=== PATIENT | male | born 1960 | race Caucasian/White ===

== ENCOUNTER 2019-07-21 07:35 | Emergency (ER) | payer MEDICARE, MEDICAID, SELFPAY ==
[2019-07-21 07:41] VITALS: BP 123/72; PULSE 83; RESP 17; TEMP 36.4; O2SAT 98; BMI 21.4
--- NOTE | 2019-07-21 07:44 | ED_ITS ---
Documented by User: [email or web address] Cortés 07/21/19 09:35 HPI - General Adult General: Chief complaint: General Medical Stated complaint: congested/cough Time Seen by Provider: 07/21/19 07:41 History of Present Illness: HPI narrative: Patient is a 58-year-old male comes into the ED with cough and nasal congestion. He states he's had these symptoms for around 2 weeks. He reports subjective fevers, chills, fatigue and body aches. He describes cough as productive with clear and sometimes yellow sputum. Denies any nausea or vomiting, chest pain, abdominal pain, dysuria, hematuria, bowel symptoms, numbness/tingling or weakness to extremities. Review of Systems General: Reports: 10 or more systems reviewed and unremarkable except in HPI and below PFSH ED PFSH: Statuses (acute, chronic, etc) shown below reflect problem list status as previously entered and may not be historically accurate Social History Smoking and tobacco status: current every day smoker Physical Exam Narrative: EXAM NARRATIVE: Patient is a 58-year-old male peers in no acute distress pain on physical examination. He is also showing no signs of respiratory distress Const: COMMON NORMALS: oriented x3 HENMT: COMMON NORMALS: normocephalic HEAD & SCALP: normocephalic NOSE: nasal discharge (clear and some yellow drainage) clear MOUTH: oral and palatal mucosa normal THROAT: posterior oropharynx normal and uvula midline Neck/C-Spine: COMMON NORMALS: supple GENERAL: Yes normal visual inspection Resp: COMMON NORMALS: normal respiratory effort, no retractions, no use of accessory muscles and clear to auscultation bilaterally AUSCULTATION: clear to auscultation bilaterally and diminished lung sounds (bases (Mild)) bilateral Cardio: COMMON NORMALS: regular rate, regular rhythm, S1 normal heart sound, S2 normal heart sound, no gallops, no clicks, no murmurs and peripheral pulses 2+ throughout RATE: regular rate RHYTHM: regular rhythm HEART SOUNDS: S1 normal and S2 normal PERIPHERAL PULSES: pulses 2+ throughout GI: COMMON NORMALS: normal to inspection, nondistended, normoactive bowel sounds, soft to palpation, non-tender and no masses PALPATION: Yes soft : COMMON NORMALS: Yes no CVA tenderness BLADDER/KIDNEY EXAM: Yes no CVA tenderness Back/Pelvis: COMMON NORMALS: no CVA tenderness Neuro: COMMON NORMALS: oriented x3 and moves all extremities Skin: COMMON NORMALS: no rashes or lesions noted GENERAL SKIN EXAM: no rashes or lesions noted Course Vital Signs: Vital signs: Vital Signs Temperature 97.5 F L 07/21/19 07:41 Pulse Rate 73 07/21/19 08:56 Respiratory Rate 14 07/21/19 08:56 Blood Pressure 113/73 07/21/19 08:56 Pulse Oximetry 98 07/21/19 08:56 MDM - General Adult MDM Narrative: Medical decision making narrative: Patient is a 58-year-old ma le comes in with cough and nasal drainage/congestion. Symptoms started about 2 weeks ago. Labs were remarkable for positive influenza A result. Chest x-ray showed no acute findings and CBC showed a white blood cell count of 6.3. Advised patient that since his symptoms have been going on for 2 weeks now it is recommended that he is prescribed Tamiflu. I educated patient on symptom management and the importance of staying hydrated by drinking plenty of fluids. Take Tylenol for fevers.I also told patient that if his symptoms continue to worsen or he has increased shortness of breath and wheezing to come back in for reevaluation. Patient understood And agreed with plan. Lab Data: Attestation: I reviewed the patient's lab results. Labs: Lab Results 07/21/19 07/21/19 07/21/19 Range/Units 07:47 07:56 07:56 WBC 6.3 (4.0-10.0) 10^3/ uL RBC 4.78 (4.1-5.3) 10^6/u L Hgb 14.3 (11.7-16.6) g/dL Hct 43.8 (42.0-52.0) % MCV 91.6 (80-94) fL MCH 29.9 (28.0-34.0) pg MCHC 32.6 (30.0-36.0) g/dL RDW 12.1 (12.1-15.1) % Plt Count 226 (130-400) 10^3/c mm MPV 9.3 (7.4-10.4) fL Neut % (Auto) 67.4 % Lymph % (Auto) 21.6 % [place] % (Auto) 6.6 % Eos % (Auto) 3.2 % Baso % (Auto) 0.6 % Neut # (Auto) 4.2 (1.8-7.7) 10^3/u L Lymph # (Auto) 1.4 (0.8-4.8) 10^3/u L [place] # (Auto) 0.4 (0.2-0.9) 10^3/u L Eos # (Auto) 0.2 (0.0-0.8) 10^3/u L Baso # (Auto) 0.0 (0.0-0.1) 10^3/u L Nucleated RBC % (a uto) 0 % Nucleated RBCs # 0.0 /100WBC Sodium 137 (136-145) mmol/L Potassium 4.1 (3.5-5.1) mmol/L Chloride 100 (98-107) mmol/L Carbon Dioxide 28 (22-29) mmol/L Anion Gap 13.1 (5-19) BUN 7 L (8-23) mg/dL Creatinine 0.7 (0.7-1.2) mg/dL GFR Calculation 115.0 (90-130) mL/min Glucose 148 H (74-106) mg/dL Calcium 9.4 (8.8-10.2) mg/Dl Total Bilirubin 0.3 (0.15-1.2) mg/dL AST 11 (0-40) U/L ALT 6 (0-41) U/L Alkaline Phosphata se 68 (40-130) IU/L Total Protein 7.0 (6.6-8.7) g/dL Albumin 4.0 (3.5-5.2) g/dL Globulin 3.0 (1.3-4.6) g/dL Influenza Type A A g Positive H (Negative) POC Influenza B Ag Negative (Negative) Imaging Data^: CXR: Attestation: I personally reviewed and interpreted this imaging study as follows: Radiologist's impression: [address] [address] XRay Report Signed Patient: Robert Calle Unit #: [id number] : 1960 Age/Sex: 58 / M ADM Date: 07/21/19 Loc: ER Room/Bed: Attending Dr: Ordering Provider/Ordering MD: Dwayne Santos Date of Service: 07/21/19 Procedure(s): XR chest 2V* 27022 Accession Number(s): [id number] Report Number: [id number] PROCEDURE INFORMATION: Exam: XR Chest, 2 Views Exam date and time: 07/21/2019 8:21 AM Age: 58 years old Clinical indication: Patient HX: Cough runny nose 2 weeks TECHNIQUE: Imaging protocol: XR of the chest Views: 2 views. COMPARISON: CR Chest 1 [place] [id number] 10/04/2018 10:47 PM FINDINGS: Cardiomediastinal silhouette contour is within normal limits. Lungs clear bilaterally. No visible pneumothorax or pleural effusion. Pulmonary vasculature within normal limits. XR/XR chest 2V* [id number] IMPRESSION: 1. No radiographic findings of acute cardiopulmonary disease. Dictated By: Zhao Garcia MD Signed By: Zhao Garcia MD Signed Date/Time: 07/21/19828 DD/ 7 Discharge Plan Discharge Patient Disposition: Home, Self-Care Clinical Impression: Influenza A Condition: Stable Discharge Orders: Discharge Order (Routine); Ordered 07/21/19 Ordered By: Dwayne Santos Referrals: Gil Graham Jr, MD [Primary Care Provider] - Discharge Diet: Regular Discharge Activity: Resume usual activity Patient Instructions: Flu - Adult Activity Restrictions/Additional Instructions: Call your primary care provider tomorrow to set up an appointment for reevaluation in about 7 days. Use previously prescribed albuterol inhaler as needed for shortness of breath or wheezing. Take Tylenol or ibuprofen for fever control. Drink plenty of fluids. 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 [employer] Documented by User: Kishan Wu DO 07/23/19 06:43 HPI - General Adult General: Chief complaint: General Medical Stated complaint: congested/cough Time Seen by Provider: 07/21/19 07:41 PFSH ED PFSH: Statuses (acute, chronic, etc) shown below reflect problem list status as previously entered and may not be historically accurate Social History Smoking and tobacco status: current every day smoker Course Vital Signs: Vital signs: Vital Signs Temperature 97.5 F L 07/21/19 07:41 Pulse Rate 73 07/21/19 08:56 Respiratory Rate 14 07/21/19 08:56 Blood Pressure 113/73 07/21/19 08:56 Pulse Oximetry 98 07/21/19 08:56 MDM - General Adult Lab Data: Labs: Lab Results 07/21/19 07/21/19 07/21/19 Range/Units 07:47 07:56 07:56 WBC 6.3 (4.0-10.0) 10^3/ uL RBC 4.78 (4.1-5.3) 10^6/u L Hgb 14.3 (11.7-16.6) g/dL Hct 43.8 (42.0-52.0) % MCV 91.6 (80-94) fL MCH 29.9 (28.0-34.0) pg MCHC 32.6 (30.0-36.0) g/dL RDW 12.1 (12.1-15.1) % Plt Count 226 (130-400) 10^3/c mm MPV 9.3 (7.4-10.4) fL Neut % (Auto) 67.4 % Lymph % (Auto) 21.6 % [place] % (Auto) 6.6 % Eos % (Auto) 3.2 % Baso % (Auto) 0.6 % Neut # (Auto) 4.2 (1.8-7.7) 10^3/u L Lymph # (Auto) 1.4 (0.8-4.8) 10^3/u L [place] # (Auto) 0.4 (0.2-0.9) 10^3/u L Eos # (Auto) 0.2 (0.0-0.8) 10^3/u L Baso # (Auto) 0.0 (0.0-0.1) 10^3/u L Nucleated RBC % (a uto) 0 % Nucleated RBCs # 0.0 /100WBC Sodium 137 (136-145) mmol/L Potassium 4.1 (3.5-5.1) mmol/L Chloride 100 (98-107) mmol/L Carbon Dioxide 28 (22-29) mmol/L Anion Gap 13.1 (5-19) BUN 7 L (8-23) mg/dL Creatinine 0.7 (0.7-1.2) mg/dL GFR Calculation 115.0 (90-130) mL/min Glucose 148 H (74-106) mg/dL Calcium 9.4 (8.8-10.2) mg/Dl Total Bilirubin 0.3 (0.15-1.2) mg/dL AST 11 (0-40) U/L ALT 6 (0-41) U/L Alkaline Phosphata se 68 (40-130) IU/L Total Protein 7.0 (6.6-8.7) g/dL Albumin 4.0 (3.5-5.2) g/dL Globulin 3.0 (1.3-4.6) g/dL Influenza Type A A g Positive H (Negative) POC Influenza B Ag Negative (Negative) Discharge Plan Discharge Patient Disposition: Home, Self-Care Clinical Impression: Influenza A Condition: Stable Discharge Orders: Discharge Order (Routine); Ordered 07/21/19 Ordered By: Dwayne Santos Referrals: Gil Graham Jr, MD [Primary Care Provider] - Discharge Diet: Regular Discharge Activity: Resume usual activity Patient Instructions: Flu - Adult Activity Restrictions/Additional Instructions: Call your primary care provider tomorrow to set up an appointment for reevaluation in about 7 days. Use previously prescribed albuterol inhaler as needed for shortness of breath or wheezing. Take Tylenol or ibuprofen for fever control. Drink plenty of fluids. 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
--- NOTE | 2019-07-21 07:44 | XRR_ITS ---
PROCEDURE INFORMATION: Exam: XR Chest, 2 Views Exam date and time: 07/21/2019 8:21 AM Age: 58 years old Clinical indication: Patient HX: Cough runny nose 2 weeks TECHNIQUE: Imaging protocol: XR of the chest Views: 2 views. COMPARISON: CR Chest 1 [place] [id number] 10/04/2018 10:47 PM FINDINGS: Cardiomediastinal silhouette contour is within normal limits. Lungs clear bilaterally. No visible pneumothorax or pleural effusion. Pulmonary vasculature within normal limits. XR/XR chest 2V* [id number] IMPRESSION: 1. No radiographic findings of acute cardiopulmonary disease.
--- NOTE | 2019-07-21 07:52 | PC.NURSE ---
Lab at bedside to draw blood
[2019-07-21 08:00] LABS: Basophils % 0.6 %; Eosinophils # 0.2 10^3/uL (0.0-0.8); Eosinophils % 3.2 %; Hematocrit 43.8 % (42.0-52.0); Hemoglobin 14.3 g/dL (11.7-16.6); Lymphocytes # 1.4 10^3/uL (0.8-4.8); Lymphocytes % 21.6 %; Mean Corpuscular HGB Conc 32.6 g/dL (30.0-36.0); Mean Corpuscular Hemoglobin 29.9 pg (28.0-34.0); Mean Corpuscular Volume 91.6 fL (80-94); Mean Platelet Volume 9.3 fL (7.4-10.4); Monocytes # 0.4 10^3/uL (0.2-0.9); Monocytes % 6.6 %; Neutrophils # 4.2 10^3/uL (1.8-7.7); Neutrophils % 67.4 %; Nucleated Red Blood Cells % 0 %; Platelet Count 226 10^3/cmm (130-400); Red Blood Count 4.78 10^6/uL (4.1-5.3); Red Cell Distribution Width 12.1 % (12.1-15.1); White Blood Count 6.3 10^3/uL (4.0-10.0)
[2019-07-21 08:14] LABS: Alanine Aminotransferase 6 U/L (0-41); Alkaline Phosphatase 68 IU/L (40-130); Anion Gap 13.1 (5-19); Aspartate Amino Transferase 11 U/L (0-40); Blood Urea Nitrogen 7 mg/dL (8-23); Calcium 9.4 mg/Dl (8.8-10.2); Carbon Dioxide 28 mmol/L (22-29); Chloride 100 mmol/L (98-107); Glucose 148 mg/dL (74-106); Potassium 4.1 mmol/L (3.5-5.1); Sodium 137 mmol/L (136-145); Total Bilirubin 0.3 mg/dL (0.15-1.2)
[2019-07-21 08:26] LABS: Influenza A by IFA Positive (Negative); Influenza B by IFA Negative (Negative)
[2019-07-21 08:27] VITALS: BP 111/74; PULSE 77; RESP 16; O2SAT 96
[2019-07-21 08:53] VITALS: BP 113/73; PULSE 77; RESP 14; O2SAT 97
[2019-07-21 08:56] VITALS: BP 113/73; PULSE 73; RESP 14; O2SAT 98
== END 2019-07-21 09:03 | disposition home or self-care (01) ==
PROVIDERS: Emergency Provider Physician Assistant; Family Provider Family Medicine; PCP Family Medicine
DX: J10.1 Influenza due to other identified influenza virus with other respiratory manifestations (principal); F17.210 Nicotine dependence, cigarettes, uncomplicated
CPT/HCPCS: 36415; 71046; 80053; 85025; 87804; 99282

== ENCOUNTER 2020-11-25 15:51 | Outpatient (CLI) | payer MEDICARE, MEDICAID, SELFPAY ==
--- NOTE | 2020-11-25 16:05 | XR_ITS ---
WS: [id number] Exam: XR chest 2V* [id number] Date/Time of Exam: 11/25/2020 4:08 PM Reason For Exam: WEIGHT LOSS Comparison 07/21/2019. The lungs are hyperinflated and clear. Fibrous scarring in the bilateral upper lobes. Normal cardiome diastinal structures and bony elements. No pleural effusion. XR/XR chest 2V* [id number] IMPRESSION: 1. Pulmonary hyperinflation which may indicate COPD. 2. Fibrous scarring in the upper lobes
== END 2020-11-25 15:52 | disposition home or self-care (01) ==
LOC: RAD 16:00
PROVIDERS: PCP Family Medicine; Visit Provider Internal Medicine
DX: R63.4 Abnormal weight loss (principal)
CPT/HCPCS: 71046

== ENCOUNTER → 2021-01-13 09:15 | Outpatient (BNVA) | payer MEDICARE, MEDICAID, SELFPAY | PROVIDERS: PCP Family Medicine; Visit Provider Internal Medicine Rheumatology | DX: M05.79 Rheumatoid arthritis with rheumatoid factor of multiple sites without organ or systems involvement (principal); Z79.899 Other long term (current) drug therapy; M19.90 Unspecified osteoarthritis, unspecified site; Z11.59 Encounter for screening for other viral diseases; Z79.52 Long term (current) use of systemic steroids; Z86.19 Personal history of other infectious and parasitic diseases; R64 Cachexia; Z68.1 Body mass index [BMI] 19.9 or less, adult; Z71.89 Other specified counseling; F17.210 Nicotine dependence, cigarettes, uncomplicated; Z11.1 Encounter for screening for respiratory tuberculosis | CPT/HCPCS: 36415; 71046; 73130; 73630; 82306; 86431; 86480; 86704; 87340; 87806; 99204 ==

== ENCOUNTER 2021-01-13 11:24 | Outpatient (CLI) | payer MEDICARE, MEDICAID, SELFPAY ==
--- NOTE | 2021-01-13 11:39 | XR_ITS ---
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 Findings: No nodules, masses or effusions are seen. There are chronic interstitial changes throughout the lungs. The heart is normal. The pulmonary vascularity is not increased. No pneumonia or pneumoth orax is seen. The diaphragms are flattened. XR/XR chest 2V* [id number] Impression: Hyperinflation and chronic interstitial fibrotic change of the lungs.
--- NOTE | 2021-01-13 11:39 | XR_ITS ---
WS: [id number] Left foot, 3 views, 01/13/2021 Clinical Data: Z79.899 - Other [facility] (current) drug therapy Comparison: None. Findings: No fractures or dislocations are seen. No bone destruction or erosion is noted. The joint spaces and soft tissues are normal. No periarticular demineralization or calcifications are seen. There is diffuse demineralization of th e left foot. XR/XR foot LT min 3V* [id number] Impression: Diffuse demineralization of the left foot.
--- NOTE | 2021-01-13 11:39 | XR_ITS ---
WS: [id number] Left hand, 3 views, 01/13/2021 Clinical Data: Z79.899 - [facility] (current[facility] drug therapy Comparison: None. Findings: No fractures or dislocations are seen. The soft tissues are unremarkable. The joint spaces are normal No periarticular demineralization or calcifications are seen. There is an old fracture of the left sc aphoid XR/XR hand LT min 3V* 13640 Impression: 1. Negative left hand. 2. Old unhealed fracture of the left scaphoid.
--- NOTE | 2021-01-13 11:39 | XR_ITS ---
WS: [id number] Right hand, 3 views, 01/13/2021 Clinical Data: Z79.899 - Other care home (current) drug therapy Comparison: None. Findings: No fractures or dislocations are seen. The soft tissues are unremarkable. The joint space s are normal No periarticular demineralization or calcifications are seen. XR/XR hand RT min 3V* [id number] Impression: Negative right hand.
--- NOTE | 2021-01-13 11:39 | XR_ITS ---
WS: [id number] Right foot, 3 views, 01/13/2021 Clinical Data: Z79.899 - Other [facility] (current) drug therapy Comparison: None. Findings: No fractures or dislocations are seen. No bone destruction or erosion is noted. The joint spaces and soft tissues are normal. No periarticular demineralization or calcifications are seen. There is diffuse demineralization of th e right foot. XR/XR foot RT min 3V* 46651 Impression: Diffuse demineralization of the right foot.
[2021-01-13 13:08] LABS: HIV 1 & 2 Antibody Non-Reactive (Non-Reactiv); HIV 1 & 2 Antigen Non-Reactive (Non-Reactiv)
[2021-01-13 13:11] LABS: 25 Hydroxy Vitamin D 22 ng/mL (30-100)
[2021-01-13 19:08] LABS: Hepatitis B Core AB, Total Non-Reactive (Nonreactive); Hepatitis B Surface Antigen Non-Reactive (Nonreactive)
[2021-01-15 14:58] LABS: Quantiferon Mitogen 8.94 IU/mL; Quantiferon Nil 0.02 IU/mL; Quantiferon TB Gold NEGATIVE (NEGATIVE)
== END 2021-01-13 11:25 | disposition home or self-care (01) ==
LOC: LAB 11:33 → RAD 11:35
PROVIDERS: PCP Family Medicine; Visit Provider Internal Medicine Rheumatology
DX: M19.90 Unspecified osteoarthritis, unspecified site (principal); Z79.899 Other long term (current) drug therapy; Z11.59 Encounter for screening for other viral diseases; Z11.1 Encounter for screening for respiratory tuberculosis
CPT/HCPCS: 36415; 71046; 73130; 73630; 82306; 86431; 86480; 86704; 87340; 87806

== ENCOUNTER 2021-05-24 07:26 | Outpatient (CLI) | payer MEDICARE, MEDICAID, SELFPAY ==
[2021-05-24 07:40] VITALS: BP 108/65; PULSE 97; RESP 18; TEMP 36.7; O2SAT 97; BMI 19.9
[2021-05-24 08:07] VITALS: BP 91/54; PULSE 84; RESP 16; TEMP 35.8; O2SAT 98
[2021-05-24 09:07] VITALS: BP 96/62; PULSE 81; RESP 16; TEMP 36.7; O2SAT 98
== END 2021-05-24 07:27 | disposition home or self-care (01) ==
PROVIDERS: PCP Family Medicine; Visit Provider Family Medicine
DX: U07.1 COVID-19 (principal)
CPT/HCPCS: 96365

== ENCOUNTER 2021-12-23 08:09 | Outpatient (CLI) | payer MEDICARE, MEDICAID, SELFPAY ==
--- NOTE | 2021-12-23 08:22 | XR_ITS ---
WS: [id number] Exam: XR thoracic spine 2V [id number] Date/Time of Exam: 12/23/2021 8:24 AM Reason For Exam: H/O FALL, PAIN There is a compression fracture of the upper plate of T11 with about 30% loss of vertebral height ant eriorly. Fracture age is indeterminate but this could be a recent fracture. No obvious posterior disp lacement noted. There is also a mild biconcave insufficiency compression of T6 without significant lo ss of vertebral height and no displacement. The T-spine is osteopenic. Mild spondylosis. Normal shola flash soft tissues. No scoliosis. XR/XR thoracic spine 2V 12695 IMPRESSION: 1. Compression fracture of the upper plate of T11 with about 30% loss of verteb ral height and no posterior displacement. Fracture age is difficult to determin e but this may be recent. 2. Mild biconcave insufficiency compression of T6 without significant displacem ent or loss in vertebral height. 3. Mild degenerative change and osteopenia.
--- NOTE | 2021-12-23 08:22 | XR_ITS ---
WS: [id number] Exam: XR chest 2V* [id number] Date/Time of Exam: 12/23/2021 8:24 AM Reason For Exam: H/O FALL PAIN Comparison 01/13/2021. The lungs are hyperinflated. Chronic fibrosis and honeycombing noted. No pleural effusions. Normal ca rdiomediastinal silhouette. Compression fracture of the upper plate of T11 noted with about 30% loss of vertebral height anteriorly. No obvious posterior displacement. This has occurred since the last e xam. The T-spine is osteopenic. XR/XR chest 2V* [id number] IMPRESSION: 1. Pulmonary hyperinflation with changes of fibrosis and honeycombing. Chronic right-sided pleural thickening. No acute cardiopulmonary process. 2. Compression fracture of the upper plate of the T11 without significant poste rior displacement. This has occurred since the last exam.
== END 2021-12-23 08:10 | disposition home or self-care (01) ==
PROVIDERS: PCP Family Medicine; Visit Provider Internal Medicine
DX: R07.89 Other chest pain (principal); S22.089A Unspecified fracture of T11-T12 vertebra, initial encounter for closed fracture; W19.XXXA Unspecified fall, initial encounter
CPT/HCPCS: 71046; 72070

== ENCOUNTER 2022-04-05 14:59 | Outpatient (CLI) | payer MEDICARE, MEDICAID, SELFPAY ==
--- NOTE | 2022-04-05 15:13 | CT_ITS ---
WS: [id number] CT CHEST TECHNIQUE: Contrast enhanced CT of the chest with coronal and sagittal reformatted images. CLINICAL INFORMATION: FIBROSIS COMPARISON: None. DLP: 533.[address] scans at [facility] use at least one of these dose optimization techniques: automated e xposure control; mA and/or kV adjustment per patient size (includes targeted exams where dose is matc hed to clinical indication); or iterative reconstruction. FINDINGS: Advanced chronic centrilobular and paraseptal emphysematous with a few small noncalcified pulmonary n odules the largest measuring 6 mm in the RIGHT upper lobe. Recommend 12 month follow-up. No acute pul monary infiltrates. No focal pneumonia pleural fluid. Suspected subpleural honeycombing more prominen t in the lung bases. This can be further evaluated with high-resolution CT. Recommend correlation wit h pulmonary function studies. Normal caliber thoracic aorta. Aortic calcification. Coronary calcification. No mediastinal or hilar lymphadenopathy. No axillary lymphadenopathy. Adrenal glands are normal. Splenic granulomas. Celiac and SMA are patent . Normal portal vein and splenic vein. Mild thoracic kyphosis. Chronic appearing compression fracture T11 vertebral body with anterior wedgi ng. CT/CT chest w con* [id number] IMPRESSION: 1. Advanced chronic paraseptal and centrilobular emphysematous changes. 2. A few scattered noncalcified pulmonary nodules largest in the RIGHT upper l obe measuring 6 mm recommend 12 month follow-up. 3. Subpleural honeycombing in the lung bases.This can be further evaluated wit h high-resolution chest CT and pulmonary consult. Recommend correlation with pu lmonary function tests. 4. No mediastinal or hilar lymphadenopathy. 5. Chronic compression of the T11 vertebral body with anterior wedging.
[2022-04-05 16:10] LABS: Blood Urea Nitrogen 7 mg/dL (8-23); Glomerular Filtration Rate 113.9 mL/min (90-130)
[2022-04-05] MEDS: iohexol 350 mg/mL 100 mL Btl IV (16:16)
== END 2022-04-05 15:00 | disposition home or self-care (01) ==
PROVIDERS: PCP Family Medicine; Visit Provider Internal Medicine
DX: J43.9 Emphysema, unspecified (principal); R91.8 Other nonspecific abnormal finding of lung field; M48.54XA Collapsed vertebra, not elsewhere classified, thoracic region, initial encounter for fracture
CPT/HCPCS: 71260; 82565; 84520

== ENCOUNTER 2022-05-17 17:15 | Inpatient (IN) | payer MEDICARE, MEDICAID, SELFPAY ==
[2022-05-17] VITALS (9 sets, daily range): BP systolic 90–111; BP diastolic 54–65; PULSE 89–121; RESP 17–24; TEMP 36.7–39.8; O2SAT 93–100; BMI 23.6; BMI 20.7
--- NOTE | 2022-05-17 17:18 | W.ED.SOB ---
HPI - SOB/Dyspnea General: Chief Complaint: COVID symptoms Stated Complaint: SOB Time Seen by Provider: 05/17/22 17:18 Limitations: altered mental status History of Present Illness: HPI Narrative: Mr. Calle is a 61-year-old gentleman with history of (per chart review) rheumatoid arthritis, hepatitis C, chronic steroid use presenting to the emergency department due to altered mental status. Patient is unable to provide reliable timeline of events. Apparently he began having fevers about 2 days ago and increased shortness of breath. EMS found the patient to be hypoxemic, tachycardic, febrile and initial blood pressure was low. History otherwise limited by patient's confusion. Review of Systems General: Reports: ROS unobtainable due to mental status PFSH ED PFSH: Medical History Chronic steroid use Encounter for smoking cessation counseling Hepatitis C Treated in 2018 High risk medication use Hyperlipidemia, unspecified Immunization counseling Paranoid schizophrenia Paranoid schizophrenia in remission Seropositive rheumatoid arthritis of multiple sites Surgical History Total knee replacement status Family History Other Unknown family medical history Social History Smoking and tobacco status: current every day smoker Alcohol intake: unknown Housing: Assisted Living Facility History of recent travel: No Physical Exam Const: COMMON NORMALS: alert GENERAL APPEARANCE: cooperative, well developed and ill appearing HENMT: COMMON NORMALS: normocephalic and atraumatic HEAD & SCALP: normocephalic and atraumatic THROAT: posterior oropharynx normal Eye: COMMON NORMALS: conjunctivae normal CONJUNCTIVA: Yes conjunctivae normal SCLERA: sclerae normal Neck/C-Spine: COMMON NORMALS: supple GENERAL: Yes trachea midline Resp: EFFORT & INSPECTION: Yes able to speak in complete sentences AUSCULTATION: rhonchi Cardio: COMMON NORMALS: regular rhythm RATE: tachycardic RHYTHM: regular rhythm GI: COMMON NORMALS: Soft to palpation PALPATION: Yes Soft to palpation and No Tenderness to palpation present (GI) Extremity: GENERAL: Yes normal exam except as noted and No edema Neuro: COMMON NORMALS: moves all extremities SENSORIUM/ORIENTATION: Yes alert and Yes Orientation impaired Psych: MEMORY/COGNITION: Yes memory grossly impaired Course Vital Signs: Vital signs: Vital Signs Temperature 98.3 F 05/21/22 07:28 Pulse Rate 88 05/21/22 11:38 Respiratory Rate 18 05/21/22 07:28 Blood Pressure 113/56 05/21/22 07:28 Pulse Oximetry 93 05/21/22 11:38 Oxygen Delivery Me thod 05/21/22 08:08 Oxygen Flow Rate 1.5 05/21/22 07:28 MDM - SOB/Dyspnea Medical Decision Making 61-year-old gentleman presenting with respiratory symptoms, patient provides limited history of no focal deficits appreciated on exam. EKG shows sinus tachycardia, nonspecific ST segment abnormalities, no STEMI. Labs with no leukocytosis, normocytic anemia. Metabolic panel with some evidence of intravascular dehydration with hyponatremia and hypochloremia, renal function is preserved. Procalcitonin elevated. Viral panel negative. CT head negative for acute intracranial pathology. Chest x-ray with left-sided pneumonia, no pneumothorax. Patient given IV fluids and antibiotics. Most likely cause of patient's symptoms of sepsis pneumonia with altered mental status and hypoxia. The results of ED evaluation were discussed with the patient including plan for admission due to requirement for level of care not available if discharged to prevent significant worsening/deterioration. Patient agreeable with plan. Discussed with hospitalist service who was agreeable to admit patient. Medical Records I reviewed the patient's medical records. Lab Data I reviewed the patient's lab results. 05/21/22 05:09 05/21/22 05:09 Labs/Radiology: Radiology Impressions Chest X-Ray 05/17/22 17:26 IMPRESSION: Left basilar pneumonia. Head CT 05/17/22 17:28 IMPRESSION: No acute intracranial abnormality. Mild sinusitis. Laboratory Results WBC 9.2 10^3/uL (4.0-10.0) 05/17/22 17:30 RBC 3.39 10^6/uL (4.1-5.3) L 05/17/22 17:30 Hgb 10.7 g/dL (11.7-16.6) L 05/17/22 17:30 Hct 31.5 % (42.0-52.0) L 05/17/22 17:30 MCV 92.9 fl (80-94) 05/17/22 17:30 MCH 31.6 pg (28.0-34.0) 05/17/22 17:30 MCHC 34.0 g/dL (30.0-36.0) 05/17/22 17:30 RDW 12.7 % (12.1-15.1) 05/17/22 17:30 Plt Count 170 10^3/cmm (130-400) 05/17/22 17:30 MPV 9.9 fL (7.4-10.4) 05/17/22 17:30 Neut % (Auto) 88.7 % 05/17/22 17:30 Lymph % (Auto) 6.8 % 05/17/22 17:30 [place] % (Auto) 3.7 % 05/17/22 17:30 Eos % (Auto) 0.0 % 05/17/22 17:30 Baso % (Auto) 0.5 % 05/17/22 17:30 Neut # (Auto) 8.14 10^3/uL (1.8-7.7) H 05/17/22 17:30 Lymph # (Auto) 0.6 10^3/uL (0.8-4.8) L 05/17/22 17:30 [place] # (Auto) 0.3 10^3/uL (0.2-0.9) 05/17/22 17:30 Eos # (Auto) 0.0 10^3/uL (0.0-0.8) 05/17/22 17:30 Baso # (Auto) 0.1 10^3/uL (0.0-0.1) 05/17/22 17:30 Nucleated RBC % (auto) 0 % 05/17/22 17:30 Nucleated RBCs # 0.0 /100WBC 05/17/22 17:30 Specimen Type Arterial 05/17/22 17:52 Sample Site Radial, left 05/17/22 17:52 ABG pH 7.47 (7.35-7.45) H 05/17/22 17:52 ABG pCO2 34.6 mmHg (35-45) L 05/17/22 17:52 ABG pO2 81.9 mmHg (80.0-100.0) 05/17/22 17:52 ABG HCO3 25.0 mmol/L (22-26) 05/17/22 17:52 ABG Base Excess 1.4 mmol/L (-2.0-2.0) 05/17/22 17:52 Stanislav Test Pos 05/17/22 17:52 Hematocrit 29.9 % (42-52) L 05/17/22 17:52 Hgb O2 Saturation 95.7 % (95-100) 05/17/22 17:52 Carboxyhemoglobin 1.5 %THgb (0.4-20.1) 05/17/22 17:52 Methemoglobin 0.6 % (0.4-1.5) 05/17/22 17:52 Total Hemoglobin 9.8 g/dL (14-18) L 05/17/22 17:52 O2 Delivery Device Nc 05/17/22 17:52 O2 Liters/Min 2.5 % 05/17/22 17:52 Poultry Breeder ID Gary 05/17/22 17:52 Sodium 127 mmol/L (136-145) L 05/17/22 17:30 Potassium 3.8 mmol/L (3.5-5.1) 05/17/22 17:30 Chloride 93 mmol/L (98-107) L 05/17/22 17:30 Carbon Dioxide 22 mmol/L (22-29) 05/17/22 17:30 Anion Gap 15.8 (5-19) 05/17/22 17:30 BUN 10 mg/dL (8-23) 05/17/22 17:30 Creatinine 0.6 mg/dL (0.7-1.2) L 05/17/22 17:30 GFR Calculation 136.1 mL/min (90-130) H 05/17/22 17:30 Glucose 110 mg/dL (65-115) 05/17/22 17:30 Calculated Osmolality 264 mOsm/kg (285-295) L 05/17/22 17:30 Lactic Acid 1.5 mmol/L (0.5-2.2) 05/17/22 17:30 Calcium 8.6 mg/dL (8.5-10.5) 05/17/22 17:30 Total Bilirubin 0.6 mg/dL (0.15-1.2) 05/17/22 17:30 AST 38 U/L (0-40) 05/17/22 17:30 ALT 14 U/L (0-41) 05/17/22 17:30 Alkaline Phosphatase 68 U/L (40-130) 05/17/22 17:30 Ammonia 36 umol/L (16-60) 05/17/22 17:49 Total Protein 6.0 g/dL (6.6-8.7) L 05/17/22 17:30 Albumin 2.9 g/dL (3.5-5.2) L 05/17/22 17:30 Globulin 3.1 g/dL (1.3-4.6) 05/17/22 17:30 Procalcitonin 1.55 ng/mL (0-0.5) H 05/17/22 17:30 TSH 1.71 uIU/mL (0.27-4.20) 05/17/22 17:47 Coronavirus 229E (PCR) Not detected (NOT DETECT) 05/17/22 17:40 SARS-CoV-2 (PCR) Not detected (NOT DETECT) 05/17/22 17:40 Critical Care Time Critical Care Time: Critical Care Time: Yes Total Critical Care Time: 35 Attestation: Due to a high probability of clinically significant, possibly life threatening deterioration, the patient required my highest level of attention and preparedness to intervene emergently and I personally spent this critical care time directly and personally managing the patient. This critical care time included obtaining a history; examining the patient; pulse oximetry; ordering and review of laboratory and imaging studies; arranging urgent treatment with development of a management plan; evaluation of patient's response to treatment; frequent reassessment; and, discussions with other providers as applicable. It was exclusive of separately billable procedures. Primary system involved is pulmonary Discharge Plan Discharge Patient Disposition: Admitted As Inpatient Admit Provider: Berkley Rao Clinical Impression: Pneumonia, Sepsis, Hypoxia Condition: Stable Discharge Diet: Regular Discharge Activity: Resume usual activity Coding Level of Care Code ED Criminal Justice Department Chair for Herog Fwd Exam Comprehensive
--- NOTE | 2022-05-17 17:26 | XRR_ITS ---
PROCEDURE INFORMATION: Exam: XR Chest Exam date and time: 05/17/2022 6:49 PM Age: 61 years old Clinical indication: Shortness of breath; Additional info: SOB, AMS TECHNIQUE: Imaging protocol: Radiologic exam of the chest. Views: 1 view. COMPARISON: CT chest w con* [id number] 04/05/2022 4:11 PM FINDINGS: Lungs: Left basilar pneumonia is noted. Pleural spaces: A small left pleural effusion is present. No pneumothorax. Heart/Mediastinum: Unremarkable. No cardiomegaly. Bones/joints: Unremarkable. XR/XR chest 1V portable [id number] IMPRESSION: Left basilar pneumonia.
--- NOTE | 2022-05-17 17:28 | CTR_ITS ---
PROCEDURE INFORMATION: Exam: CT Head Without Contrast Exam date and time: 05/17/2022 5:40 PM Age: 61 years old Clinical indication: Fever; Additional info: AMS TECHNIQUE: Imaging protocol: Computed tomography of the head without contrast. Radiation optimization: All CT scans at this facility use at least one of these dose optimization techniques: automated exposure control; mA and/or kV adjustment per patient size (includes targeted exams where dose is matched to clinical indication); or iterative reconstruction. COMPARISON: No relevant prior studies available. RADIATION DOSE METRICS: Total DLP (mGy-cm): 1100.18 FINDINGS: Brain: Mild periventricular white matter chronic microvascular changes are noted. No hemorrhage or evidence of acute infarction. Cerebral ventricles: No ventriculomegaly. Paranasal sinuses: Mild left ethmoid sinusitis is appreciated. Mastoid air cells: Visualized mastoid air cells are well aerated. Bones/joints: Unremarkable. No acute fracture. Soft tissues: Unremarkable. CT/CT head wo con* [id number] IMPRESSION: No acute intracranial abnormality. Mild sinusitis.
--- NOTE | 2022-05-17 17:35 | ECG_ITS ---
[facility] Test Date: 2022-05-17 Pat Name: Robert Calle Department: Room: Gender: Male Medicare Contact Specialist: : [id number] Requested By: Paresh Gibbs Order Number: [id number] Susan MD: Javi Cobos M.D. Measurements Intervals [place] Rate: 118 P: 75 OR: 141 QRS: 67 QRSD: 96 T: 54 QT: 300 QTc: 420 Interpretive Statements SINUS TACHYCARDIA WITH OCCASIONAL SUPRAVENTRICULAR PREMATURE COMPLEXES Compared to ECG 07/06/2017 12:16:26 Indeterminate axis no longer present Electronically Signed On 05-19-2022 6:27:42 CAR STEREO INSTALLER by Javi Cobos M.D. [id number]
[2022-05-17 17:41] LABS: Basophils # 0.1 10^3/uL (0.0-0.1); Basophils % 0.5 %; Hematocrit 31.5 % (42.0-52.0); Hemoglobin 10.7 g/dL (11.7-16.6); Lymphocytes # 0.6 10^3/uL (0.8-4.8); Lymphocytes % 6.8 %; Mean Corpuscular Hemoglobin 31.6 pg (28.0-34.0); Mean Corpuscular Volume 92.9 fl (80-94); Mean Platelet Volume 9.9 fL (7.4-10.4); Monocytes # 0.3 10^3/uL (0.2-0.9); Monocytes % 3.7 %; Neutrophils # 8.14 10^3/uL (1.8-7.7); Neutrophils % 88.7 %; Nucleated Red Blood Cells % 0 %; Platelet Count 170 10^3/cmm (130-400); Red Blood Count 3.39 10^6/uL (4.1-5.3); Red Cell Distribution Width 12.7 % (12.1-15.1); White Blood Count 9.2 10^3/uL (4.0-10.0)
[2022-05-17] MEDS: acetaminophen 1,000 MG/100 ML PIGGYBACK 400 MG IV (17:55)
[2022-05-17 18:04] LABS: Slide Review Slide Review Perform
[2022-05-17 18:09] LABS: ABG PCO2 34.6 mmHg (35-45); ABG PH Result 7.47 (7.35-7.45); Arterial Blood Gas Hematocrit 29.9 % (42-52); Base Excess ABG 1.4 mmol/L (-2.0-2.0); Blood Gas Allen Test Pos; Blood Gas LPM 2.5 %; Blood Gas Sample Site Radial, left; Blood Gas Sample Type Arterial; Carboxyhemoglobin 1.5 %THgb (0.4-20.1); HGB O2 Sat 95.7 % (95-100); Methemoglobin 0.6 % (0.4-1.5); Oxygen Device NC; PO2 ABG 81.9 mmHg (80.0-100.0); Total Hemoglobin 9.8 g/dL (14-18)
[2022-05-17 18:13] LABS: Ammonia 36 umol/L (16-60)
[2022-05-17 18:13] LABS: Lactic Sepsis W/Reflex 1.5 mmol/L (0.5-2.2)
[2022-05-17] MEDS: vancomycin 1,500 MG/300 ML PIGGYBACK 200 MG IV (18:13)
[2022-05-17] MEDS: cefepime 2,000 MG in sodium chloride 0.9% (plus) 50 ML 100 MG IV (18:16)
[2022-05-17 18:20] LABS: Procalcitonin 1.55 ng/mL (0-0.5)
[2022-05-17 18:20] LABS: Thyroid Stimulating Hormone 1.71 uIU/mL (0.27-4.20)
[2022-05-17 18:33] LABS: Alanine Aminotransferase 14 U/L (0-41); Albumin Level 2.9 g/dL (3.5-5.2); Alkaline Phosphatase 68 U/L (40-130); Anion Gap 15.8 (5-19); Aspartate Amino Transferase 38 U/L (0-40); Blood Urea Nitrogen 10 mg/dL (8-23); Calcium 8.6 mg/dL (8.5-10.5); Carbon Dioxide 22 mmol/L (22-29); Chloride 93 mmol/L (98-107); Globulin 3.1 g/dL (1.3-4.6); Glomerular Filtration Rate 136.1 mL/min (90-130); Glucose 110 mg/dL (65-115); Osmolality Calculated 264 mOsm/kg (285-295); Potassium 3.8 mmol/L (3.5-5.1); Sodium 127 mmol/L (136-145); Total Bilirubin 0.6 mg/dL (0.15-1.2)
[2022-05-17 19:36] LABS: Adenovirus Not Detected (NOT DETECT); Coronavirus 229E,HKU1,NL63,OC4 Not Detected (NOT DETECT); Human Metapneumovirus Not Detected (NOT DETECT); Human Rhinovirus/Enterovirus Not Detected (NOT DETECT); Influenza A Not Detected (NOT DETECT); Influenza A H1 Not Detected (NOT DETECT); Influenza A H1-2009 Not Detected (NOT DETECT); Influenza A H3 Not Detected (NOT DETECT); Influenza B Not Detected (NOT DETECT); Parainfluenza Virus Type 1 Not Detected (NOT DETECT); Parainfluenza Virus Type 2 Not Detected (NOT DETECT); SARS-COV-2 Not Detected (NOT DETECT)
[2022-05-17 19:37] LABS: Chlamydia Pneumoniae Not Detected (NOT DETECT); Mycoplasma Pneumoniae Not Detected (NOT DETECT); Parainfluenza Virus Type 3 Not Detected (NOT DETECT); Parainfluenza Virus Type 4 Not Detected (NOT DETECT); Respiratory Syncytial Virus A Not Detected (NOT DETECT); Respiratory Syncytial Virus B Not Detected (NOT DETECT)
[2022-05-17] MEDS: hydrocortisone 100 mg/2 mL SDV IVP (19:38)
--- NOTE | 2022-05-17 22:49 | P.HP_ITS ---
Providers/Chief Complaint Admitting Physician: Berkley Rao MD Primary Care Provider: Gil Graham Jr, MD Chief Complaint: SOB History of Present Illness Robert Calle is a 61 year old male with a past medical history of rheumatoid arthritis, currently on treatment with prednisone 7.5 mg daily and methotrexate weekly. Past diagnoses also of paranoid schizophrenia, hyperlipi demia, treated hep C. He presents to the ER today sent from the assisted living facility with chief complains of fever over the last 3 to 4 days, as high as 102 Fahrenheit at home. Has also noted cough and expectoration over the same time frame. Reports generalized fatigue and weakness, states that he is too weak to perform even his daily activities. He denies any chest pain or dyspnea though is noted to have a new oxygen requirement of 2 L/min supplemental O2 today. Denies any nausea vomiting diarrhea abdominal pain. X-ray in the ER is showing the left lower lobe consolidation. No past history of recurrent pneumonias. No recent sick contacts at the assisted living. Per ER note, it appears that patient was disoriented upon arrival, however currently he is alert awake oriented, able to participate appropriately in all conversation. States he feels better after having received some initial fluid resuscitation in the ER. His chart notes a history of paranoid schizophrenia, I am uncertain if he has history of additional cognitive or memory issues at this time. Review of Systems General: Reports: 10 or more systems reviewed and unremarkable except in HPI and below Const: Denies: fever(s), chills or body aches Eyes: Denies: change in vision, blurry vision or photophobia ENMT: Reports: hoarseness; Denies: throat pain, enlarged tonsils, odynophagia or nasal congestion Card: Denies: chest pain, palpitations, irregular heart rhythm, edema, swelling of feet/ankles, lightheadedness, pre-syncope, dyspnea on exertion or orthopnea Resp: Denies: dyspnea, productive cough, non-productive cough, wheezing, stridor, pain on inspiration, change in phlegm color, hemoptysis or chest congestion GI: Denies: abdominal pain, nausea, vomiting, hematemesis, coffee ground emesis, dysphagia, heartburn, diarrhea, constipation, GI cramping, change in stool character, hematochezia or melena : Denies: flank pain, dysuria, urinary frequency, urinary urgency, urinary hesitancy or hematuria Musc: Denies: neck pain, back pain, extremity pain, joint swelling, joint warmth or deformity Neuro: Denies: headache(s), numbness in extremities, weakness in extremities, sensory changes, difficulty walking, frequent falls, dizziness, vertigo, behav ioral changes, Slurred speech present or seizure-like activity Psych: Denies: anxiety, depression, suicidal ideation or homicidal ideation Endo: Denies: polyuria, polydipsia, tired all the time, cold intolerance or hot flashes Prosper/Lymph: Denies: easy bruising or easy bleeding Medications/Allergies Home Medications Medication Instructions Recorded Confirmed Last Taken Type acetaminophen 325 mg capsule 650 mg PO QID PRN Pain 01/13/21 05/17/22 Unknown History ascorbate calcium (vitamin C) 500 500 mg PO DAILY 01/13/21 05/17/22 Unknown Hi story mg tablet celecoxib 200 mg capsule (Celebrex) 200 mg PO DAILY 01/13/21 05/17/22 05/17/22 History guaifenesin 100 mg/5 mL oral liquid 200 mg PO Q4H PRN Cough 01/13/21 05/17/22 Unknown History lisinopril 5 mg tablet 5 mg PO DAILY 01/13/21 05/17/22 05/17/22 History loratadine 10 mg capsule 10 mg PO DAILY 01/13/21 05/17/22 05/17/22 History methotrexate sodium 2.5 mg tablet 10 mg PO .Q7days #20 tabs 01/13/21 05/17/22 05/15/22 Rx olanzapine 15 mg tablet 15 mg PO QPM 01/13/21 05/17/22 05/16/22 History omeprazole 40 mg capsule,delayed 40 mg PO DAILY 01/13/21 05/17/22 05/17/22 History release psyllium husk 0.4 gram capsule 0.8 g PO BEDTIME 01/13/21 05/17/22 05/16/22 History (Reguloid (psyllium husk)) sennosides 8.6 mg-docusate sodium 1 tab-cap PO BID 01/13/21 05/17/22 05/17/22 History 50 mg tablet (Senexon-S) tramadol 50 mg tablet 50 mg PO QID 01/13/21 05/17/22 05/17/22 History cholecalciferol (vitamin D3) 50 50 mcg PO DAILY #30 caps 01/17/21 05/17/22 05/17/22 Rx mcg (2,000 unit) capsule alprazolam 0.5 mg tablet 0.5 mg PO QID 05/17/22 05/17/22 05/17/22 History folic acid 800 mcg tablet 800 mcg PO DAILY 05/17/22 05/17/22 Unknown History prednisone 5 mg tablet 7.5 mg PO DAILY 05/17/22 05/17/22 05/17/22 History trazodone 100 mg tablet 100 mg PO BEDTIME 05/17/22 05/17/22 05/16/22 History Allergies Allergy/AdvReac Type Severity Reaction Status Date / Time haloperidol [From Haldol] Allergy ADR-Muscle Verified 05/17/22 17:25 Pain Penicillins Allergy Unknown Verified 05/17/22 17:25 PFSH Acute PFSH: Medical History Chronic steroid use Encounter for smoking cessation counseling Hepatitis C Treated in 2018 High risk medication use Hyperlipidemia, unspecified Immunization counseling Paranoid schizophrenia Paranoid schizophrenia in remission Seropositive rheumatoid arthritis of multiple sites Surgical History Total knee replacement status Family History Other Unknown family medical history Social History Smoking and tobacco status: current every day smoker Alcohol intake: unknown Housing: Assisted Living Facility History of recent travel: No Vitals/I&O/Wt Last Vital Signs Temp 98.0 F 05/17/22 21:29 Pulse 89 05/17/22 21:29 Resp 17 05/17/22 21:29 BP 99/62 05/17/22 21:29 Pulse Ox 93 05/17/22 21:29 O2 Del Method 05/17/22 20:30 O2 Flow Rate 2 05/17/22 20:30 05/17/22 05/17/22 05/17/22 06:59 14:59 22:59 Intake Total 2571 / 2571 Balance 2571 / 2571 Weight last 48 hrs Weight 63.531 kg Weight 72.575 kg Physical Exam Narrative: General: No acute distress, AO x3 HEENT: PERRLA, pupils bilaterally equal and reactive, pallors not present, supplemental oxygen via nasal cannula Chest: Bronchial breath sounds left lower lobe, reduced air entry, no wheezing or rails CVS: S1-S2 regular, no murmurs, no tachycardia, no gallops, no rubs Abdomen: Soft, nontender, no organomegaly, bowel sounds present Neuro: No focal deficits, no facial deformity, AO x3, power 5/5 in all limbs Extremities: Multiple noted joint deformities over hands and feet. No rashes. Data 05/17/22 17:30 05/17/22 17:30 Other Labs: Radiology Impressions Chest X-Ray 05/17/22 17:26 IMPRESSION: Left basilar pneumonia. Head CT 05/17/22 17:28 IMPRESSION: No acute intracranial abnormality. Mild sinusitis. Laboratory Results WBC 9.2 10^3/uL (4.0-10.0) 05/17/22 17:30 RBC 3.39 10^6/uL (4.1-5.3) L 05/17/22 17:30 Hgb 10.7 g/dL (11.7-16.6) L 05/17/22 17:30 Hct 31.5 % (42.0-52.0) L 05/17/22 17:30 MCV 92.9 fl (80-94) 05/17/22 17:30 MCH 31.6 pg (28.0-34.0) 05/17/22 17:30 MCHC 34.0 g/dL (30.0-36.0) 05/17/22 17:30 RDW 12.7 % (12.1-15.1) 05/17/22 17:30 Plt Count 170 10^3/cmm (130-400) 05/17/22 17:30 MPV 9.9 fL (7.4-10.4) 05/17/22 17:30 Neut % (Auto) 88.7 % 05/17/22 17:30 Lymph % (Auto) 6.8 % 05/17/22 17:30 [place] % (Auto) 3.7 % 05/17/22 17:30 Eos % (Auto) 0.0 % 05/17/22 17:30 Baso % (Auto) 0.5 % 05/17/22 17:30 Neut # (Auto) 8.14 10^3/uL (1.8-7.7) H 05/17/22 17:30 Lymph # (Auto) 0.6 10^3/uL (0.8-4.8) L 05/17/22 17:30 [place] # (Auto) 0.3 10^3/uL (0.2-0.9) 05/17/22 17:30 Eos # (Auto) 0.0 10^3/uL (0.0-0.8) 05/17/22 17:30 Baso # (Auto) 0.1 10^3/uL (0.0-0.1) 05/17/22 17:30 Nucleated RBC % (auto) 0 % 05/17/22 17:30 Nucleated RBCs # 0.0 /100WBC 05/17/22 17:30 Specimen Type Arterial 05/17/22 17:52 Sample Site Radial, left 05/17/22 17:52 ABG pH 7.47 (7.35-7.45) H 05/17/22 17:52 ABG pCO2 34.6 mmHg (35-45) L 05/17/22 17:52 ABG pO2 81.9 mmHg (80.0-100.0) 05/17/22 17:52 ABG HCO3 25.0 mmol/L (22-26) 05/17/22 17:52 ABG Base Excess 1.4 mmol/L (-2.0-2.0) 05/17/22 17:52 Stanislav Test Pos 05/17/22 17:52 Hematocrit 29.9 % (42-52) L 05/17/22 17:52 Hgb O2 Saturation 95.7 % (95-100) 05/17/22 17:52 Carboxyhemoglobin 1.5 %THgb (0.4-20.1) 05/17/22 17:52 Methemoglobin 0.6 % (0.4-1.5) 05/17/22 17:52 Total Hemoglobin 9.8 g/dL (14-18) L 05/17/22 17:52 O2 Delivery Device Nc 05/17/22 17:52 O2 Liters/Min 2.5 % 05/17/22 17:52 Geriatric Nursing Assistant ID Gary 05/17/22 17:52 Sodium 127 mmol/L (136-145) L 05/17/22 17:30 Potassium 3.8 mmol/L (3.5-5.1) 05/17/22 17:30 Chloride 93 mmol/L (98-107) L 05/17/22 17:30 Carbon Dioxide 22 mmol/L (22-29) 05/17/22 17:30 Anion Gap 15.8 (5-19) 05/17/22 17:30 BUN 10 mg/dL (8-23) 05/17/22 17:30 Creatinine 0.6 mg/dL (0.7-1.2) L 05/17/22 17:30 GFR Calculation 136.1 mL/min (90-130) H 05/17/22 17:30 Glucose 110 mg/dL (65-115) 05/17/22 17:30 Calculated Osmolality 264 mOsm/kg (285-295) L 05/17/22 17:30 Lactic Acid 1.5 mmol/L (0.5-2.2) 05/17/22 17:30 Calcium 8.6 mg/dL (8.5-10.5) 05/17/22 17:30 Total Bilirubin 0.6 mg/dL (0.15-1.2) 05/17/22 17:30 AST 38 U/L (0-40) 05/17/22 17:30 ALT 14 U/L (0-41) 05/17/22 17:30 Alkaline Phosphatase 68 U/L (40-130) 05/17/22 17:30 Ammonia 36 umol/L (16-60) 05/17/22 17:49 Total Protein 6.0 g/dL (6.6-8.7) L 05/17/22 17:30 Albumin 2.9 g/dL (3.5-5.2) L 05/17/22 17:30 Globulin 3.1 g/dL (1.3-4.6) 05/17/22 17:30 Procalcitonin 1.55 ng/mL (0-0.5) H 05/17/22 17:30 TSH 1.71 uIU/mL (0.27-4.20) 05/17/22 17:47 Coronavirus 229E (PCR) Not detected (NOT DETECT) 05/17/22 17:40 SARS-CoV-2 (PCR) Not detected (NOT DETECT) 05/17/22 17:40 Micro: Microbiology 05/17/22 18:05 Blood Culture - Preliminary Blood SPECIMEN COLLECTED 05/17/22 18:00 Blood Culture - Preliminary Blood SPECIMEN COLLECTED ABG Interpretation 1: 05/17/22 17:52 ABG pH 7.47 H ABG pCO2 34.6 L ABG pO2 81.9 ABG HCO3 25.0 ABG Base Excess 1.4 A&P Assessment and plan (1) Pneumonia: (2) Hypoxia: (3) Chronic steroid use: Plan 61-year-old male with arthritis, chronically on prednisone 7.5 mg p.o. daily and methotrexate presenting today with 4 days of fever cough expectoration with evidence of left lower lobe pneumonia on imaging, likely community-acquired p neumonia. Will start empiric antibiotic treatment with cefepime vancomycin and atypical coverage with azithromycin Check sputum culture and gram stain, urine bacterial antigen and Legionella antigens. Check MRSA nares, if negative vancomycin can likely be discontinued. Supplemental O2 to keep saturation greater than 92%. Hold methotrexate while undergoing treatment for pneumonia. We will continue prednisone 77.5 mg p.o. daily. Monitor for improvement with above treatment and pending investigations, currently appears to be community-acquired pneumonia, if no improvement will likely need evaluation for atypical causes. Patient reports some history of odynophagia, states that it takes a long time for him to swallow his meals. For now we will keep him on a dysphagia diet and obtain a swallow eval to see if aspiration may be a potential cause of his pneumonia. Negative COVID PCR check influenza antigen Blood culture has been taken prior to initiation of antibiotics, pending at this time IV fluids 75 cc an hour, monitor urine output Per ER report, patient was reportedly encephalopathic initially upon admission. However at the time of my assessment he is alert awake oriented x3 and able to participate in conversation appropriately. Full code DVT prophylaxis: Lovenox 40 mg subcutaneous daily PUD prophylaxis: Protonix 40 mg p.o. daily Disposition: Likely return to assisted living when nearing discharge. Attestations Medical Necessity Statement*: Anticipate greater than 2 midnight admission for above defined care , iv abx for pneumonia Coding Level of Care Code Acute Nanotechnology Technician for Chhermilo Mclaind Diagnoses Pneumonia J18.9 Hypoxia R09.02 Chronic steroid use
[2022-05-17] MEDS: sodium chloride 0.9% 1,000 ML 75 ML IV (23:19)
[2022-05-17] MEDS: enoxaparin 40 mg/0.4 mL Syringe SUBCUT (23:19)
[2022-05-17] MEDS: azithromycin 500 MG in sodium chloride 0.9% 250 ML 250 MG IV (23:19)
--- NOTE | 2022-05-17 23:24 | PC.PHAR ---
Pharmacokinetic dosing service Date: 05/17/22 Time: 2324 Objective: Patient: Robert Calle Floor: 270-1 Age: 61 yo Serum creatinine: 0.6 mg/dL Height: 69.0 Inches Weight (kg): 63.531 Diagnosis: Relevant medical/social history: Cultures and sensitivities: Other labs: Assessment: IBW (kg): 70.70 Dosing wt(kg): 63.531 Estimated Creatinine clearance (ml/min): 113.2 CRCL method: Cockcroft and Gault using ibw(default). Drug selected: Vancomycin Loading dose (mg): 0 Vd (liters): 57.2 (factor used: 0.9 L/kg) Augustus (hr-1): 0.098 Half life (hrs): 7.07 Recommended dose: 1000 mg Interval: 8 hrs Infusion time (hrs): 1.5 Predicted peak (mcg/mL): 29.9 Predicted trough (mcg/mL): 15.81 Total body weight is being used for vancomycin dosing. Renal function is stable [ ] /unstable [ ] Recommendations: Give Vancomycin 1000 mg q 8 hrs with an expected Cpeak of 29.9 mcg/ml and an expected Ctrough of 15.81 mcg/ml Renal dosing of other antibiotics (review renal dosing of other medications and list guidelines here): Thank you for the consult, will continue to follow. Signature: Uzma Stubbs [facility]
[2022-05-18] VITALS (10 sets, daily range): BP systolic 99–115; BP diastolic 61–72; PULSE 81–103; RESP 18–23; TEMP 36.4–36.8; O2SAT 94–98
[2022-05-18] MEDS: trazodone 100 mg Tablet PO ×2 (00:32→22:02)
[2022-05-18 00:43] LABS: Add Urine Microscopic? NO; Charge for UA Resulting for Rev
[2022-05-18 00:52] LABS: Urine Appearance Clear (CLEAR); Urine Color Yellow (Yellow)
[2022-05-18 00:53] LABS: Bilirubin Urine Neg (Negative); Blood Urine Neg (Negative); Glucose Urine UA 1+ (Normal); Ketones Urine Negative (Negative); Leukocyte Esterase Urine Negative (Negative); Nitrate Urine Negative (Negative); Protein Urine Neg (Negative); Urobilinogen Urine Norm (Negative); pH Urine 7 (5-7)
[2022-05-18] MEDS: vancomycin 1,000 MG in sodium chloride 0.9% 250 ML 250 MG IV ×3 (02:21→17:04)
[2022-05-18] MEDS: cefepime 2,000 MG in sodium chloride 0.9% (plus) 50 ML 100 MG IV ×2 (05:35→17:01)
[2022-05-18 05:40] LABS: Estmated Average Glucose 100; Hemoglobin A1C 5.1 % (4.0-6.0)
[2022-05-18 05:45] LABS: Alanine Aminotransferase 13 U/L (0-41); Albumin Level 2.3 g/dL (3.5-5.2); Alkaline Phosphatase 59 U/L (40-130); Anion Gap 11.7 (5-19); Aspartate Amino Transferase 26 U/L (0-40); Blood Urea Nitrogen 11 mg/dL (8-23); Calcium 8.3 mg/dL (8.5-10.5); Carbon Dioxide 23 mmol/L (22-29); Chloride 107 mmol/L (98-107); Globulin 2.8 g/dL (1.3-4.6); Glomerular Filtration Rate 167.9 mL/min (90-130); Glucose 141 mg/dL (65-115); Magnesium 1.8 mg/dL (1.7-2.3); Osmolality Calculated 288 mOsm/kg (285-295); Potassium 3.7 mmol/L (3.5-5.1); Sodium 138 mmol/L (136-145); Total Bilirubin 0.4 mg/dL (0.15-1.2); Total Protein 5.1 g/dL (6.6-8.7)
[2022-05-18 05:59] LABS: Creatinine Clr Calc Pharmacy 151.5428
[2022-05-18 08:34] LABS: Influenza A by IFA negative (Negative); Influenza B by IFA negative (Negative)
[2022-05-18] MEDS: predniSONE 5 mg Tablet 7.5 MG PO (08:49)
[2022-05-18] MEDS: pantoprazole DR 40 mg Tablet PO (08:50)
[2022-05-18] MEDS: sennosides-docusate Tablet 1 TAB PO ×2 (08:50→17:04)
--- NOTE | 2022-05-18 09:55 | PM.PN ---
Subjective Subjective: Patient was seen this morning, he was able to ambulate to the bathroom with help of staff, did complain of fevers overnight, shortness of breath Vitals/I&O/Wt Last Vital Signs Temp 97.6 F 05/18/22 07:20 Pulse 84 05/18/22 08:00 Resp 22 H 05/18/22 07:20 BP 99/62 05/18/22 07:20 Pulse Ox 96 05/18/22 08:00 O2 Del Method 05/18/22 08:00 O2 Flow Rate 2 05/18/22 08:00 05/17/22 05/18/22 05/18/22 22:59 06:59 14:59 Intake Total 2571 / 2571 850 / 3421 240 / 240 Output Total 1850 / 1850 Balance 2571 / 2571 -1000 / 1571 240 / 240 Weight last 48 hrs Weight 71.078 kg Weight 63.531 kg Weight 72.575 kg Physical Exam Const: COMMON NORMALS: no acute distress and patient oriented x3 Resp: COMMON NORMALS: normal respiratory effort, No retractions and No use of accessory muscles AUSCULTATION: wheezes Cardio: COMMON NORMALS: regular rate, regular rhythm, S1 normal heart sound present and S2 normal heart sound present RATE: regular rate RHYTHM: regular rhythm HEART SOUNDS: S1 normal heart sound present and S2 normal heart sound present GI: COMMON NORMALS: Normal to inspection, nondistended, normoactive bowel sounds present, non-tender and no bruits Extremity: COMMON NORMALS: no pedal edema Neuro: COMMON NORMALS: patient oriented x3 Psych: COMMON NORMALS: mental status grossly normal Data 05/17/22 17:30 05/18/22 05:14 Micro: Microbiology 05/18/22 00:03 Legionella Urinary Antigen - Final Urine,Voided Bacterial Antigens - Final 05/17/22 18:05 Blood Culture - Preliminary Blood SPECIMEN COLLECTED 05/17/22 18:00 Blood Culture - Preliminary Blood SPECIMEN COLLECTED A&P Assessment and plan (1) Pneumonia: (2) Hypoxia: (3) Chronic steroid use: Plan 61-year-old male with arthritis, chronically on prednisone 7.5 mg p.o. daily and methotrexate presenting today with 4 days of fever cough expectoration with evidence of left lower lobe pneumonia on imaging, likely community-acquired pneumonia. Will start empiric antibiotic treatment with cefepime vancomycin and atypical coverage with azithromycin Check sputum culture and gram stain, urine bacterial antigen and Legionella antigens. Check MRSA nares, if negative vancomycin can likely be discontinued. Supplemental O2 to keep saturation greater than 92%. Hold methotrexate while undergoing treatment for pneumonia. We will continue prednisone 77.5 mg p.o. daily. Monitor for improvement with above treatment and pending investigations, currently appears to be community-acquired pneumonia, if no improvement will likely need evaluation for atypical causes. Patient reports some history of odynophagia, states that it takes a long time for him to swallow his meals. For now we will keep him on a dysphagia diet and obtain a swallow eval to see if aspiration may be a potential cause of his pneumonia. Negative COVID PCR check influenza antigen negative Blood culture has been taken prior to initiation of antibiotics, pending at this time IV fluids 75 cc an hour, monitor urine output Per ER report, patient was reportedly encephalopathic initially upon admission. However at the time of my assessment he is alert awake oriented x3 and able to participate in conversation appropriately. Currently alert oriented x3, following all commands Full code DVT prophylaxis: Lovenox 40 mg subcutaneous daily PUD prophylaxis: Protonix 40 mg p.o. daily Disposition: Likely return to assisted living when nearing discharge. 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
[2022-05-18] MEDS: sodium chloride 0.9% 1,000 ML 75 ML IV (11:47)
--- NOTE | 2022-05-18 13:28 | PC.CHAP ---
Pastoral Care Encounter/Spiritual Assessment Type of Contact [] Declined laborer golf course visit [] Patient/Family/Request visit [] Outpatient visit [] Follow-up visit [] Physician referral [] Code/Alert [x] Routine visit [] Staff referral [] Actively dying [] Patient sleeping [] Family support [] [] Out of room [] Palliative care [] [x] Receiving care in room [] Pre-surgical visit [] Trauma [x] Long length of stay [] ICU visit [] Other: Relational/Emotional Strength [x] Patient feels connected with others/family/visitors/staff [] Distress [] Loneliness/isolation [] Abandonment Spirituality of Patient [x] Person of Adela [] Attends Anabaptist of their Adela [x] Believes in Prayer [] Reads Bible or Nondenominational materials [] There are Spiritual issues to be addressed [employer] 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 Reading Teacher Interventions [x] Prayer [x] Active listening [x] Non-anxious presence [x] Spiritual/emotional support [] Crisis/trauma care [x] Spiritual counseling [] Bereavement support [] Provided bereavement packet [] Provided Bible/devotional materials [] Provided toy/stuffed animal, coloring book to patient or family member [] Provided Communion [] Anointing/Ault [] Salvation [] Completed spiritual assessment [] Other: Impact on Illness or Injury [] Angry [] Fearful [] Anxious [] Often cries [] Exhaustion [] Unable to work [] Unable to attend church [] Unable to walk/stand [] Unable to read [] Unable to drive [] Unable to eat/drink [] Unable to sleep [] Unable to be with family [] Patient intubated [] Other: Summary SOB dealing with lungs phumonia has a good attitude waiting doctors report well go home Time spent with patient 10 min s
[2022-05-18] MEDS: OLANZapine 10 mg TABLET 15 MG PO (17:03)
[2022-05-18] MEDS: azithromycin 500 MG in sodium chloride 0.9% 250 ML 250 MG IV (22:13)
[2022-05-18] MEDS: enoxaparin 40 mg/0.4 mL Syringe SUBCUT (22:13)
[2022-05-19] VITALS (11 sets, daily range): BP systolic 96–138; BP diastolic 53–72; PULSE 82–112; RESP 16–20; TEMP 36.7–37.2; O2SAT 92–98
[2022-05-19] MEDS: ALPRAZolam 0.5 mg Tablet PO (00:28)
[2022-05-19] MEDS: acetaminophen 325 mg Tablet 650 MG PO (00:28)
[2022-05-19 00:48] LABS: Basophils % 0.3 %; Eosinophils % 0.1 %; Hemoglobin 9.9 g/dL (11.7-16.6); Lymphocytes # 0.9 10^3/uL (0.8-4.8); Lymphocytes % 8.4 %; Mean Corpuscular Hemoglobin 31.1 pg (28.0-34.0); Mean Corpuscular Volume 94.3 fl (80-94); Mean Platelet Volume 9.7 fL (7.4-10.4); Monocytes # 0.6 10^3/uL (0.2-0.9); Monocytes % 5.5 %; Neutrophils # 9.35 10^3/uL (1.8-7.7); Neutrophils % 84.4 %; Nucleated Red Blood Cells % 0 %; Platelet Count 144 10^3/cmm (130-400); Red Blood Count 3.18 10^6/uL (4.1-5.3); White Blood Count 11.1 10^3/uL (4.0-10.0)
[2022-05-19 01:06] LABS: Anion Gap 11.4 (5-19); Blood Urea Nitrogen 10 mg/dL (8-23); Calcium 8.3 mg/dL (8.5-10.5); Carbon Dioxide 23 mmol/L (22-29); Chloride 106 mmol/L (98-107); Glomerular Filtration Rate 136.1 mL/min (90-130); Glucose 162 mg/dL (65-115); Osmolality Calculated 287 mOsm/kg (285-295); Potassium 3.4 mmol/L (3.5-5.1); Sodium 137 mmol/L (136-145)
[2022-05-19 01:15] LABS: Vancomycin Trough 12.7 ug/mL (10-15)
[2022-05-19] MEDS: guaiFENesin 100 mg/5 mL UDC 10 mL 200 MG PO (02:12)
[2022-05-19] MEDS: vancomycin 1,000 MG in sodium chloride 0.9% 250 ML 250 MG IV ×3 (02:12→17:01)
[2022-05-19] MEDS: sodium chloride 0.9% 1,000 ML 75 ML IV ×2 (05:20→11:23)
[2022-05-19] MEDS: cefepime 2,000 MG in sodium chloride 0.9% (plus) 50 ML 100 MG IV ×2 (05:55→17:01)
[2022-05-19] MEDS: predniSONE 5 mg Tablet 7.5 MG PO (08:11)
[2022-05-19] MEDS: pantoprazole DR 40 mg Tablet PO (08:11)
[2022-05-19] MEDS: potassium chloride ER 20 mEq Tablet 40 MEQ PO (10:24)
--- NOTE | 2022-05-19 10:28 | PC.NURSE ---
this nurse assumed care at this time
--- NOTE | 2022-05-19 14:31 | PM.PN ---
Subjective Subjective: Patient was seen this morning he is alert oriented x3, following all commands, he tells me he feels better, shortness of breath is improving Vitals/I&O/Wt Last Vital Signs Temp 98.9 F 05/19/22 11:34 Pulse 93 05/19/22 11:34 Resp 17 05/19/22 11:34 BP 101/60 05/19/22 11:34 Pulse Ox 96 05/19/22 11:34 O2 Del Method 05/19/22 11:34 O2 Flow Rate 2 05/19/22 11:34 05/18/22 05/19/22 05/19/22 22:59 06:59 14:59 Intake Total 540 / 2205 3790 / 5995 933.75 / 933.75 Balance 540 / 1705 3790 / 5495 933.75 / 933.75 Weight last 48 hrs Weight 68.13 kg Weight 71.078 kg Weight 63.531 kg Weight 72.575 kg Physical Exam Const: COMMON NORMALS: no acute distress and patient oriented x3 Resp: COMMON NORMALS: normal respiratory effort, No retractions, No use of accessory muscles and clear to auscultation bilaterally AUSCULTATION: clear to auscultation bilaterally Cardio: COMMON NORMALS: regular rate, regular rhythm, S1 normal heart sound present and S2 normal heart sound present RATE: regular rate RHYTHM: regular rhythm HEART SOUNDS: S1 normal heart sound present and S2 normal heart sound present GI: COMMON NORMALS: Normal to inspection, nondistended, normoactive bowel sounds present and non-tender Extremity: COMMON NORMALS: no pedal edema Neuro: COMMON NORMALS: patient oriented x3 Psych: COMMON NORMALS: mental status grossly normal Data 05/19/22 00:35 05/19/22 00:35 Micro: Microbiology 05/19/22 09:28 Blood Culture - Preliminary Blood SPECIMEN COLLECTED 05/19/22 09:28 Blood Culture - Preliminary Blood SPECIMEN COLLECTED 05/17/22 18:05 Blood Culture - Preliminary Blood NEGATIVE TO DATE 05/17/22 18:00 Blood Culture - Preliminary Blood Streptococcus pneumoniae 05/18/22 08:00 MRSA Culture - Final Nose A&P Assessment and plan (1) Pneumonia: (2) Hypoxia: (3) Chronic steroid use: (4) Bacteremia due to Streptococcus pneumoniae: Plan 61-year-old male with arthritis, chronically on prednisone 7.5 mg p.o. daily and methotrexate presenting today with 4 days of fever cough expectoration with evidence of left lower lobe pneumonia on imaging, likely community-acquired pneumonia. Will start empiric antibiotic treatment with cefepime vancomycin and atypical coverage with azithromycin Check sputum culture and gram stain, urine bacterial antigen and Legionella antigens. MRSA nares negative, if negative vancomycin can likely be discontinued. 1 blood culture positive for strep pneumonia Supplemental O2 to keep saturation greater than 92%. Hold methotrexate while undergoing treatment for pneumonia. We will continue prednisone 77.5 mg p.o. daily. Monitor for improvement with above treatment and pending investigations, currently appears to be community-acquired pneumonia, if no improvement will likely need evaluation for atypical causes. Patient reports some history of odynophagia, states that it takes a long time for him to swallow his meals. For now we will keep him on a dysphagia diet and obtain a swallow eval to see if aspiration may be a potential cause of his pneumonia. Negative COVID PCR check influenza antigen negative Blood culture has been taken prior to initiation of antibiotics, pending at this time Stop fluids Per ER report, patient was reportedly encephalopathic initially upon admission. However at the time of my assessment he is alert awake oriented x3 and able to participate in conversation appropriately. Currently alert oriented x3, following all commands Full code DVT prophylaxis: Lovenox 40 mg subcutaneous daily PUD prophylaxis: Protonix 40 mg p.o. daily Disposition: Likely return to assisted living when nearing discharge. 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
[2022-05-19] MEDS: sennosides-docusate Tablet 1 TAB PO (17:01)
[2022-05-19] MEDS: OLANZapine 10 mg TABLET 15 MG PO (17:01)
[2022-05-19] MEDS: trazodone 100 mg Tablet PO (20:02)
[2022-05-19] MEDS: psyllium powder Pkt 0.8 PACKET PO (20:03)
[2022-05-20] VITALS (12 sets, daily range): BP systolic 117–127; BP diastolic 58–73; PULSE 63–112; RESP 16–18; TEMP 36.9–37.2; O2SAT 91–95
[2022-05-20] MEDS: enoxaparin 40 mg/0.4 mL Syringe SUBCUT ×2 (00:19→23:58)
[2022-05-20] MEDS: azithromycin 500 MG in sodium chloride 0.9% 250 ML 250 MG IV (00:19)
[2022-05-20] MEDS: vancomycin 1,000 MG in sodium chloride 0.9% 250 ML 250 MG IV ×2 (02:18→10:26)
[2022-05-20 04:00] LABS: Basophils # 0.1 10^3/uL (0.0-0.1); Basophils % 0.6 %; Eosinophils % 0.4 %; Hemoglobin 9.7 g/dL (11.7-16.6); Lymphocytes # 1.2 10^3/uL (0.8-4.8); Lymphocytes % 15.3 %; Mean Corpuscular HGB Conc 32.3 g/dL (30.0-36.0); Mean Corpuscular Hemoglobin 30.9 pg (28.0-34.0); Mean Corpuscular Volume 95.5 fl (80-94); Mean Platelet Volume 9.8 fL (7.4-10.4); Monocytes % 12.2 %; Neutrophils # 5.54 10^3/uL (1.8-7.7); Neutrophils % 69.1 %; Nucleated Red Blood Cells % 0 %; Platelet Count 161 10^3/cmm (130-400); Red Blood Count 3.14 10^6/uL (4.1-5.3); Red Cell Distribution Width 13.4 % (12.1-15.1)
[2022-05-20 04:30] LABS: Anion Gap 11.5 (5-19); Blood Urea Nitrogen 8 mg/dL (8-23); Calcium 8.3 mg/dL (8.5-10.5); Carbon Dioxide 25 mmol/L (22-29); Chloride 104 mmol/L (98-107); Glomerular Filtration Rate 167.9 mL/min (90-130); Glucose 112 mg/dL (65-115); Osmolality Calculated 283 mOsm/kg (285-295); Potassium 3.5 mmol/L (3.5-5.1); Sodium 137 mmol/L (136-145)
[2022-05-20 04:31] LABS: Creatinine Clr Calc Pharmacy 149.0207
[2022-05-20] MEDS: cefepime 2,000 MG in sodium chloride 0.9% (plus) 50 ML 100 MG IV ×2 (05:24→17:15)
[2022-05-20] MEDS: pantoprazole DR 40 mg Tablet PO (08:06)
[2022-05-20] MEDS: predniSONE 5 mg Tablet 7.5 MG PO (08:06)
[2022-05-20] MEDS: sennosides-docusate Tablet 1 TAB PO ×2 (08:06→17:15)
--- NOTE | 2022-05-20 10:20 | PC.SOCIAL ---
IMM update IMM updated CM left message for guardivandana Garcia. Copy Pg 2 left at patient's bedside. Initialled, dated, timed, and placed in chart.
--- NOTE | 2022-05-20 13:16 | P.PN_ITS ---
Subjective Subjective: Patient was seen this morning he does complain of continued shortness of breath with exertion, no fevers overnight Vitals/I&O/Wt Last Vital Signs Temp 99 F 05/20/22 12:00 Pulse 93 05/20/22 12:00 Resp 16 05/20/22 12:00 BP 121/70 05/20/22 12:00 Pulse Ox 95 05/20/22 12:00 O2 Del Method 05/20/22 08:00 O2 Flow Rate 2 05/19/22 20:00 05/19/22 05/20/22 05/20/22 22:59 06:59 14:59 Intake Total 1120 / 2303.75 1050 / 3353.75 630 / 630 Output Total 1050 / 1050 Balance 1120 / 2303.75 0 / 2303.75 630 / 630 Weight last 48 hrs Weight 68.13 kg Physical Exam Const: COMMON NORMALS: no acute distress and patient oriented x3 Resp: COMMON NORMALS: normal respiratory effort, No retractions, No use of accessory muscles and clear to auscultation bilaterally AUSCULTATION: clear to auscultation bilaterally Cardio: COMMON NORMALS: regular rate, regular rhythm, S1 normal heart sound present and S2 normal heart sound present RATE: regular rate RHYTHM: regular rhythm HEART SOUNDS: S1 normal heart sound present and S2 normal heart sound present GI: COMMON NORMALS: Normal to inspection, nondistended, normoactive bowel sounds present and non-tender Extremity: COMMON NORMALS: no pedal edema Neuro: COMMON NORMALS: patient oriented x3 Psych: COMMON NORMALS: mental status grossly normal Data 05/20/22 03:30 05/20/22 03:30 Micro: Microbiology 05/19/22 09:28 Blood Culture - Preliminary Blood NEGATIVE TO DATE 05/19/22 09:28 Blood Culture - Preliminary Blood NEGATIVE TO DATE A&P Assessment and plan (1) Pneumonia: (2) Hypoxia: (3) Chronic steroid use: (4) Bacteremia due to Streptococcus pneumoniae: Plan 61-year-old male with arthritis, chronically on prednisone 7.5 mg p.o. daily and methotrexate presenting today with 4 days of fever cough expectoration with evidence of left lower lobe pneumonia on imaging, likely community-acquired pneumonia. Continue antibiotic treatment with cefepime vancomycin and atypical coverage with azithromycin Check sputum culture and gram stain, urine bacterial antigen and Legionella antigens. MRSA nares negative, stop vancomycin 1 blood culture positive for strep pneumonia continue cefepime, Today's last dose of azithromycin Supplemental O2 to keep saturation greater than 92%. Hold methotrexate while undergoing treatment for pneumonia. We will continue prednisone 7.5 mg p.o. daily. Monitor for improvement with above treatment and pending investigations, currently appears to be community-acquired pneumonia, if no improvement will likely need evaluation for atypical causes. Patient reports some history of odynophagia, states that it takes a long time for him to swallow his meals. For now we will keep him on a dysphagia diet and obtain a swallow eval to see if aspiration may be a potential cause of his pneumonia. Negative COVID PCR, influenza antigen negative First blood culture positive for strep pneumo, follow repeat blood cultures likely discharge tomorrow if negative Currently alert oriented x3, following all commands Full code DVT prophylaxis: Lovenox 40 mg subcutaneous daily PUD prophylaxis: Protonix 40 mg p.o. daily Disposition: Likely return to assisted living when nearing discharge. 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
[2022-05-20] MEDS: OLANZapine 10 mg TABLET 15 MG PO (17:14)
--- NOTE | 2022-05-20 18:23 | PC.NURSE ---
update Pt takes his oxygen off from time to time. Encouraged to try to keep it on. No c/o pain.
[2022-05-20] MEDS: trazodone 100 mg Tablet PO (20:58)
[2022-05-20] MEDS: psyllium powder Pkt 0.8 PACKET PO (20:59)
[2022-05-21 04:00] VITALS: BP 114/54; PULSE 87; RESP 16; TEMP 37.6; O2SAT 91
[2022-05-21 05:10] VITALS: PULSE 84
[2022-05-21] MEDS: cefepime 2,000 MG in sodium chloride 0.9% (plus) 50 ML 100 MG IV (05:32)
[2022-05-21 06:32] LABS: Anion Gap 12.5 (5-19); Blood Urea Nitrogen 7 mg/dL (8-23); Calcium 8.3 mg/dL (8.5-10.5); Carbon Dioxide 25 mmol/L (22-29); Chloride 99 mmol/L (98-107); Glomerular Filtration Rate 302.8 mL/min (90-130); Glucose 115 mg/dL (65-115); Osmolality Calculated 275 mOsm/kg (285-295); Potassium 3.5 mmol/L (3.5-5.1); Sodium 133 mmol/L (136-145)
[2022-05-21 06:42] LABS: Basophils # 0.1 10^3/uL (0.0-0.1); Basophils % 0.5 %; Eosinophils # 0.1 10^3/uL (0.0-0.8); Eosinophils % 0.7 %; Hematocrit 30.7 % (42.0-52.0); Hemoglobin 10.2 g/dL (11.7-16.6); Lymphocytes # 1.6 10^3/uL (0.8-4.8); Lymphocytes % 15.5 %; Mean Corpuscular HGB Conc 33.2 g/dL (30.0-36.0); Mean Corpuscular Hemoglobin 31.5 pg (28.0-34.0); Mean Corpuscular Volume 94.8 fl (80-94); Mean Platelet Volume 9.8 fL (7.4-10.4); Monocytes % 9.7 %; Neutrophils # 7.23 10^3/uL (1.8-7.7); Nucleated Red Blood Cells % 0 %; Platelet Count 228 10^3/cmm (130-400); Red Blood Count 3.24 10^6/uL (4.1-5.3); Red Cell Distribution Width 13.6 % (12.1-15.1)
[2022-05-21 07:28] VITALS: BP 113/56; PULSE 91; RESP 18; TEMP 36.8; O2SAT 96
[2022-05-21 08:08] VITALS: PULSE 88; O2SAT 93
[2022-05-21] MEDS: pantoprazole DR 40 mg Tablet PO (09:00)
[2022-05-21] MEDS: sennosides-docusate Tablet 1 TAB PO (09:00)
[2022-05-21] MEDS: predniSONE 5 mg Tablet 7.5 MG PO (09:00)
--- NOTE | 2022-05-21 09:45 | PM.DCS ---
Discharge Providers Date of Admission: 05/17/22 20:23 Date of Discharge: May 21, 2022 Attending Provider at Admission: Berkley Rao MD Attending Provider at Discharge: Karel Garcia MD Primary Care Provider: Gil Graham Jr, MD Diagnoses at Discharge Discharge Diagnosis (1) Pneumonia: Status: Acute (2) Hypoxia: Status: Acute (3) Chronic steroid use: Status: Acute (4) Bacteremia due to Streptococcus pneumoniae: Status: Acute Reason for Visit Reason for Visit: SOB Hospital Course Hospital Course Robert Calle is a 61 year old male with a past medical history of rheumatoid arthritis, currently on treatment with prednisone 7.5 mg daily and methotrexate weekly.? Past diagnoses also of paranoid schizophrenia, hyperlipidemia, treated hep C. He presents to the ER today sent from the assisted living facility with chief complains of fever over the last 3 to 4 days, as high as 102 Fahrenheit at home.? Patient presents to [facility] for pneumonia and bacteremia secondary to strep strep pneumonia. Received broad-spectrum antibiotic therapy, oxygen therapy, clinically monitored. He remained afebrile, repeat blood cultures have been unremarkable, ambulating without significant symptomatology. He will be discharged on a total of 10 days of cefdinir, I did not elect for IV antibiotics as only 1 of 4 of his blood cultures were positive, and the bacteremia cleared very quickly. If he were to have recurrent fevers, cough, shortness of breath to come back to emergency room. 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 Physical Exam Const: COMMON NORMALS: no acute distress and patient oriented x3 Resp: COMMON NORMALS: normal respiratory effort, No retractions, No use of accessory muscles and clear to auscultation bilaterally AUSCULTATION: clear to auscultation bilaterally Cardio: COMMON NORMALS: regular rate, regular rhythm, S1 normal heart sound present and S2 normal heart sound present RATE: regular rate RHYTHM: regular rhythm HEART SOUNDS: S1 normal heart sound present and S2 normal heart sound present GI: COMMON NORMALS: Normal to inspection, nondistended, normoactive bowel sounds present and non-tender Extremity: COMMON NORMALS: no pedal edema Neuro: COMMON NORMALS: patient oriented x3 Psych: COMMON NORMALS: mental status grossly normal Discharge Data Studies Completed and Pending Completed Studies During Hospitalization Category Date Time Status CT head wo con* [id number] Stat Cat Scan 05/17/22 17:28 Completed XR chest 1V portable [id number] Stat Exams 05/17/22 17:26 Completed Pending at discharge Category Date Time Status Blood Culture Stat Lab 05/17/22 18:00 Results Blood Culture Stat Lab 05/19/22 09:28 Results Sputum Culture and Gram Stain Routine Lab 05/17/22 22:44 Uncollected Radiology Impressions Chest X-Ray 05/17/22 17:26 IMPRESSION: Left basilar pneumonia. Head CT 05/17/22 17:28 IMPRESSION: No acute intracranial abnormality. Mild sinusitis. Laboratory Results WBC 10.0 10^3/uL (4.0-10.0) 05/21/22 05:09 RBC 3.24 10^6/uL (4.1-5.3) L 05/21/22 05:09 Hgb 10.2 g/dL (11.7-16.6) L 05/21/22 05:09 Hct 30.7 % (42.0-52.0) L 05/21/22 05:09 MCV 94.8 fl (80-94) H 05/21/22 05:09 MCH 31.5 pg (28.0-34.0) 05/21/22 05:09 MCHC 33.2 g/dL (30.0-36.0) 05/21/22 05:09 RDW 13.6 % (12.1-15.1) 05/21/22 05:09 Plt Count 228 10^3/cmm (130-400) D 05/21/22 05:09 MPV 9.8 fL (7.4-10.4) 05/21/22 05:09 Neut % (Auto) 72.0 % 05/21/22 05:09 Lymph % (Auto) 15.5 % 05/21/22 05:09 [place] % (Auto) 9.7 % 05/21/22 05:09 Eos % (Auto) 0.7 % 05/21/22 05:09 Baso % (Auto) 0.5 % 05/21/22 05:09 Neut # (Auto) 7.23 10^3/uL (1.8-7.7) 05/21/22 05:09 Lymph # (Auto) 1.6 10^3/uL (0.8-4.8) 05/21/22 05:09 [place] # (Auto) 1.0 10^3/uL (0.2-0.9) H 05/21/22 05:09 Eos # (Auto) 0.1 10^3/uL (0.0-0.8) 05/21/22 05:09 Baso # (Auto) 0.1 10^3/uL (0.0-0.1) 05/21/22 05:09 Nucleated RBC % (auto) 0 % 05/21/22 05:09 Nucleated RBCs # 0.0 /100WBC 05/21/22 05:09 Specimen Type Arterial 05/17/22 17:52 Sample Site Radial, left 05/17/22 17:52 ABG pH 7.47 (7.35-7.45) H 05/17/22 17:52 ABG pCO2 34.6 mmHg (35-45) L 05/17/22 17:52 ABG pO2 81.9 mmHg (80.0-100.0) 05/17/22 17:52 ABG HCO3 25.0 mmol/L (22-26) 05/17/22 17:52 ABG Base Excess 1.4 mmol/L (-2.0-2.0) 05/17/22 17:52 Stanislav Test Pos 05/17/22 17:52 Hematocrit 29.9 % (42-52) L 05/17/22 17:52 Hgb O2 Saturation 95.7 % (95-100) 05/17/22 17:52 Carboxyhemoglobin 1.5 %THgb (0.4-20.1) 05/17/22 17:52 Methemoglobin 0.6 % (0.4-1.5) 05/17/22 17:52 Total Hemoglobin 9.8 g/dL (14-18) L 05/17/22 17:52 O2 Delivery Device Nc 05/17/22 17:52 O2 Liters/Min 2.5 % 05/17/22 17:52 Lightning Rod Erector ID Gary 05/17/22 17:52 Sodium 133 mmol/L (136-145) L 05/21/22 05:09 Potassium 3.5 mmol/L (3.5-5.1) 05/21/22 05:09 Chloride 99 mmol/L (98-107) 05/21/22 05:09 Carbon Dioxide 25 mmol/L (22-29) 05/21/22 05:09 Anion Gap 12.5 (5-19) 05/21/22 05:09 BUN 7 mg/dL (8-23) L 05/21/22 05:09 Creatinine 0.3 mg/dL (0.7-1.2) L 05/21/22 05:09 GFR Calculation 302.8 mL/min (90-130) H 05/21/22 05:09 Glucose 115 mg/dL (65-115) 05/21/22 05:09 Estimat Average Glucose 100 05/18/22 05:14 Hemoglobin A1c 5.1 % (4.0-6.0) 05/18/22 05:14 Calculated Osmolality 275 mOsm/kg (285-295) L 05/21/22 05:09 Lactic Acid 1.5 mmol/L (0.5-2.2) 05/17/22 17:30 Calcium 8.3 mg/dL (8.5-10.5) L 05/21/22 05:09 Magnesium 1.8 mg/dL (1.7-2.3) 05/18/22 05:14 Total Bilirubin 0.4 mg/dL (0.15-1.2) 05/18/22 05:14 AST 26 U/L (0-40) 05/18/22 05:14 ALT 13 U/L (0-41) 05/18/22 05:14 Alkaline Phosphatase 59 U/L (40-130) 05/18/22 05:14 Ammonia 36 umol/L (16-60) 05/17/22 17:49 Total Protein 5.1 g/dL (6.6-8.7) L 05/18/22 05:14 Albumin 2.3 g/dL (3.5-5.2) L 05/18/22 05:14 Globulin 2.8 g/dL (1.3-4.6) 05/18/22 05:14 Procalcitonin 1.55 ng/mL (0-0.5) H 05/17/22 17:30 TSH 1.71 uIU/mL (0.27-4.20) 05/17/22 17:47 Urine Color Yellow (Yellow) 05/18/22 00:03 Urine Appearance Clear (CLEAR) 05/18/22 00:03 Urine pH 7 (5-7) 05/18/22 00:03 Ur Specific [place] 1.010 (1.005-1.030) 05/18/22 00:03 Urine Protein Neg (Negative) 05/18/22 00:03 Urine Glucose (UA) 1+ (Normal) H 05/18/22 00:03 Urine Ketones Negative (Negative) 05/18/22 00:03 Urine Blood Neg (Negative) 05/18/22 00:03 Urine Nitrate Negative (Negative) 05/18/22 00:03 Urine Bilirubin Neg (Negative) 05/18/22 00:03 Urine Urobilinogen Norm mg/dL (Negative) 05/18/22 00:03 Ur Leukocyte Esterase Negative (Negative) 05/18/22 00:03 Vancomycin Trough 12.7 ug/mL (10-15) 05/19/22 00:35 Coronavirus 229E (PCR) Not detected (NOT DETECT) 05/17/22 17:40 Influenza Type A Ag negative (Negative) 05/18/22 08:00 Influenza Type B Ag negative (Negative) 05/18/22 08:00 SARS-CoV-2 (PCR) Not detected (NOT DETECT) 05/17/22 17:40 Vitals Last Vital Signs Temp 98.3 F 05/21/22 07:28 Pulse 88 05/21/22 08:08 Resp 18 05/21/22 07:28 BP 113/56 05/21/22 07:28 Pulse Ox 93 05/21/22 08:08 O2 Del Method 05/21/22 08:08 O2 Flow Rate 1.5 05/21/22 07:28 Discharge Plan Discharge Patient Disposition: Xfer [facility] Condition: Stable Prescriptions: New albuterol sulfate 90 mcg/actuation HFA aerosol inhaler 1 inh inhalation Q6H PRN (Reason: shortness of breath or wheezing) Qty: 8.5 0RF benzonatate 100 mg capsule 100 mg PO TID PRN (Reason: cough) 7 Days Qty: 21 0RF cefdinir 300 mg capsule 300 mg PO BID 10 Days Qty: 20 0RF Continued celecoxib [Celebrex] 200 mg capsule 200 mg PO DAILY lisinopril 5 mg tablet 5 mg PO DAILY loratadine 10 mg capsule 10 mg PO DAILY olanzapine 15 mg tablet 15 mg PO QPM omeprazole 40 mg capsule,delayed release(DR/EC) 40 mg PO DAILY psyllium husk [Reguloid (psyllium husk)] 0.4 gram capsule 0.8 g PO BEDTIME sennosides-docusate sodium [Senexon-S] 8.6-50 mg tablet 1 tab-cap PO BID tramadol 50 mg tablet 50 mg PO QID acetaminophen 325 mg capsule 650 mg PO QID PRN (Reason: Pain) guaifenesin 100 mg/5 mL liquid 200 mg PO Q4H PRN (Reason: Cough) ascorbate calcium (vitamin C) 500 mg tablet 500 mg PO DAILY cholecalciferol (vitamin D3) 50 mcg (2,000 unit) capsule 50 mcg PO DAILY Qty: 30 3RF alprazolam 0.5 mg tablet 0.5 mg PO QID trazodone 100 mg tablet 100 mg PO BEDTIME folic acid 800 mcg Tablet 800 mcg PO DAILY prednisone 5 mg tablet 7.5 mg PO DAILY Held methotrexate sodium 2.5 mg tablet 10 mg PO .Q7days Qty: 20 2RF Hold Instructions: Resume on 06/12/22. hold until you see rheumatology Discharge Orders: Discharge Order (Routine); Ordered 05/21/22 Ordered By: Karel Garcia Referrals: Gil Graham Jr, MD [Primary Care Provider] - Discharge Diet: Regular Discharge Activity: Resume usual activity Activity Restrictions/Additional Instructions: - hold methotrexate, until you see your primary care provider or your processing supervisor in a month -Take antibiotics as prescribed -Continue to face mask, hand wash -If any recurrent fevers, shortness of breath to go to emergency room Discharge Attestations Time Spent in Discharge Care*: less than 30 min Quality Metrics Clinical Quality Measures [ No reported AMI, CVA or VTE this stay] Coding Level of Care Code Acute Chg FW DC note Diagnoses Pneumonia J18.9 Hypoxia R09.02 Chronic steroid use Bacteremia due to Streptococcus pneumoniae R78.81; B95.3
--- NOTE | 2022-05-21 10:54 | PC.NURSE ---
report Called report to Della at [facility].
[2022-05-21 11:38] VITALS: PULSE 88; O2SAT 93
== END 2022-05-21 11:40 | disposition home or self-care (01) | DRG 194 ==
LOC: ER 19:24 → MEDSURG 20:24
PROVIDERS: Admitting Provider Student in an Organized Health Care Education/Training Program; Emergency Provider Emergency Medicine; PCP Family Medicine; Visit Provider Family Medicine
DX: J13 Pneumonia due to Streptococcus pneumoniae (principal); D84.89 Other immunodeficiencies; F20.0 Paranoid schizophrenia; R78.81 Bacteremia; M05.9 Rheumatoid arthritis with rheumatoid factor, unspecified; E78.5 Hyperlipidemia, unspecified; R09.02 Hypoxemia; F17.200 Nicotine dependence, unspecified, uncomplicated; R13.10 Dysphagia, unspecified; Z79.52 Long term (current) use of systemic steroids; Z79.631 Long term (current) use of antimetabolite agent; Z86.19 Personal history of other infectious and parasitic diseases
CPT/HCPCS: 36415; 36600; 70450; 71045; 80048; 80053; 80202; 81003; 82140; 82805; 83036; 83605; 83735; 84145; 84443; 85025; 86403; 87040; 87150; 87186; 87449; 87635; 87641; 87804; 92523; 92526; 92610; 93005; 96372; J0131; J0456; J0692; J1650; J1720; J3370; J7030; J7050; J7512

== ENCOUNTER → 2022-08-09 09:40 | Outpatient (BNVA) | payer MEDICARE, MEDICAID, SELFPAY | PROVIDERS: PCP Family Medicine; Visit Provider Podiatrist Foot & Ankle Surgery | DX: L60.8 Other nail disorders (principal); B35.1 Tinea unguium; L60.3 Nail dystrophy | CPT/HCPCS: 11720; 99204 ==

== ENCOUNTER 2022-08-24 11:06 | Outpatient (CLI) | payer MEDICARE, MEDICAID, SELFPAY | END 2022-08-24 11:07 | disposition home or self-care (01) | LOC: RT 11:11 | PROVIDERS: PCP Family Medicine; Visit Provider Nurse Practitioner Family | DX: J84.10 Pulmonary fibrosis, unspecified (principal); R91.8 Other nonspecific abnormal finding of lung field | CPT/HCPCS: 94010; 94726; 94729 ==

== ENCOUNTER → 2022-11-14 12:50 | Outpatient (BNVA) | payer MEDICARE, MEDICAID, SELFPAY | PROVIDERS: PCP Family Medicine; Visit Provider Podiatrist Foot & Ankle Surgery | DX: I73.9 Peripheral vascular disease, unspecified (principal); L60.8 Other nail disorders; B35.1 Tinea unguium; L60.3 Nail dystrophy | CPT/HCPCS: 11721 ==

== ENCOUNTER → 2022-11-16 10:07 | Outpatient (BNVA) | payer MEDICARE, MEDICAID, SELFPAY | PROVIDERS: PCP Family Medicine; Visit Provider Internal Medicine Pulmonary Disease | DX: J43.9 Emphysema, unspecified (principal); F17.210 Nicotine dependence, cigarettes, uncomplicated; F20.0 Paranoid schizophrenia; J84.10 Pulmonary fibrosis, unspecified; J84.89 Other specified interstitial pulmonary diseases; M35.9 Systemic involvement of connective tissue, unspecified; M05.79 Rheumatoid arthritis with rheumatoid factor of multiple sites without organ or systems involvement; Z79.899 Other long term (current) drug therapy | CPT/HCPCS: 99204 ==

== ENCOUNTER 2022-12-07 07:17 | Outpatient (CLI) | payer MEDICARE, MEDICAID, SELFPAY | END 2022-12-07 07:18 | disposition home or self-care (01) | LOC: RT 07:21 | PROVIDERS: PCP Family Medicine; Visit Provider Internal Medicine Pulmonary Disease | DX: J98.8 Other specified respiratory disorders (principal) | CPT/HCPCS: 94010; 94726; 94729 ==

== ENCOUNTER → 2023-01-16 13:00 | Outpatient (BNVA) | payer MEDICARE, MEDICAID, SELFPAY | PROVIDERS: PCP Family Medicine; Visit Provider Podiatrist Foot & Ankle Surgery | DX: I73.9 Peripheral vascular disease, unspecified (principal); L60.8 Other nail disorders; B35.1 Tinea unguium; L60.3 Nail dystrophy | CPT/HCPCS: 11721 ==

== ENCOUNTER → 2023-03-20 12:49 | Outpatient (BNVA) | payer MEDICARE, MEDICAID, SELFPAY | PROVIDERS: PCP Family Medicine; Visit Provider Podiatrist Foot & Ankle Surgery | DX: L60.8 Other nail disorders (principal); B35.1 Tinea unguium; L60.3 Nail dystrophy; I73.9 Peripheral vascular disease, unspecified | CPT/HCPCS: 11721 ==

== ENCOUNTER 2023-04-10 07:54 | Outpatient (CLI) | payer MEDICARE, MEDICAID, SELFPAY ==
--- NOTE | 2023-04-10 08:30 | CT_ITS ---
WS: [id number] LDCT LUNG CANCER SCREENING TECHNIQUE: Noncontrast CT of the chest with coronal and sagittal reformatted images. CLINICAL INFORMATION: Cancer screening COMPARISON: CT chest 04/05/2022 DLP: 50.41 mGy.cm DIvol: Mean CTDIvol: 0.80 (mGy) All CT scans at [facility] use at least one of these dose optimization techniques: automat ed exposure control; mA and/or kV adjustment per patient size (includes targeted exams where dose is matched to clinical indication); or iterative reconstruction. FINDINGS: Advanced chronic centrilobular and paraseptal emphysematous changes similar to previous. Subpleural honeycombing more prominent in the lung bases. Recommend correlation with pulmonary function studie s. Previously described 6 mm nodule RIGHT upper lobe is not seen today and was likely inflammatory. Scat tered bilateral reticular opacities and interstitial thickening. LEFT upper lobe nodules anteriorly a long the juan largest measuring 7-8 mm appear stable compared to previous. A few additional scattered subcentimeter pulmonary nodules mainly in the upper lungs. Pleural parenchymal scarring in the LEFT upper lobe anteriorly. Normal caliber thoracic aorta. Aortic calcification. Coronary calcification. No mediastinal or hilar lymphadenopathy. No axillary lymphadenopathy. Adrenal glands are normal. Splenic granulomas. Mild thoracic kyphosis. Chronic appearing compression fracture T11 vertebral body with anterior wedging. IMPRESSION: Subpleural honeycombing with reticular opacities compatible with UIP in the appropriate c linical setting CT/CT lung screening [id number] LUNG-RADS: 2S-Benign Appearance or Behavior with Significant Findings FOLLOW UP: 12 Month: Continue annual screening with LDCT
== END 2023-04-10 07:55 | disposition home or self-care (01) ==
PROVIDERS: PCP Family Medicine; Visit Provider Internal Medicine Pulmonary Disease
DX: Z12.2 Encounter for screening for malignant neoplasm of respiratory organs (principal); F17.210 Nicotine dependence, cigarettes, uncomplicated
CPT/HCPCS: 71271; 99204

== ENCOUNTER 2023-12-24 14:22 | Emergency (ER) | payer MEDICARE, MEDICAID, SELFPAY ==
[2023-12-24 14:29] VITALS: BP 98/63; PULSE 89; RESP 16; TEMP 36.4; O2SAT 95; BMI 19.2
--- NOTE | 2023-12-24 14:44 | CTR_ITS ---
PROCEDURE INFORMATION: Exam: CT Head Without Contrast Exam date and time: 12/24/2023 2:50 PM Age: 63 years old Clinical indication: Injury or trauma; Fall; Work related; Blunt trauma (contusions or hematomas); Injury details: Fell at work and hit forehead, denies loc or WINN; Additional info: AMS TECHNIQUE: Imaging protocol: Computed tomography of the head without contrast. Radiation optimization: All CT scans at this facility use at least one of these dose optimization techniques: automated exposure control; mA and/or kV adjustment per patient size (includes targeted exams where dose is matched to clinical indication); or iterative reconstruction. COMPARISON: CT head wo con* [id number] 05/17/2022 5:40 PM RADIATION DOSE METRICS: Total DLP (mGy-cm): 1036.59 FINDINGS: Brain: No intracranial hemorrhage. There is global parenchymal volume loss. Periventricular white matter hypoattenuation is nonspecific but most likely due to small vessel disease. No evidence of acute territorial infarct or cerebral edema. No mass effect or midline shift. Cerebral ventricles: Prominent ventricles likely secondary to volume loss. Paranasal sinuses: Visualized sinuses are unremarkable. No fluid levels. Mastoid air cells: Visualized mastoid air cells are well aerated. Bones: Unremarkable. No acute fracture. Soft tissues: Unremarkable. CT/CT head wo con* [id number] IMPRESSION: No acute intracranial findings.
--- NOTE | 2023-12-24 14:44 | XR_ITS ---
WS: [id number] Exam: XR chest 1V portable [id number] Date/Time of Exam: 12/24/2023 2:59 PM Reason For Exam: ams Comparison 05/17/2022. There are infiltrates in the RIGHT lower lung zone and the mid and LEFT lower lung zone. Pneumonia is not excluded but these are likely chronic changes. Heart size is normal. The mediastinum and osseous thorax are unremarkable. Bilateral apical pleural thickening. No pleural effusions. No pneumothorax. Chronic interstitial changes are noted. XR/XR chest 1V portable [id number] IMPRESSION: 1. Mild infiltrates in the RIGHT lower lung zone and the mid and lower LEFT sita g zones. Pneumonia not excluded but changes are more likely chronic in nature. There is superimposed interstitial chronic changes noted bilaterally.
--- NOTE | 2023-12-24 15:11 | ECG_ITS ---
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 Measurements Intervals [place] Rate: 85 P: 74 WV: 156 QRS: 60 QRSD: 138 T: 43 QT: 378 QTc: 451 Interpretive Statements SINUS RHYTHM POSSIBLE LEFT ATRIAL ENLARGEMENT [-0.1mV P-WAVE IN V1/V2] RIGHT BUNDLE BRANCH BLOCK [120+ ms QRS DURATION, UPRIGHT V1, 40+ ms S IN I/aVL/V4/V5/V6] Compared to ECG 05/17/2022 17:35:38 Right bundle-branch block now present Sinus tachycardia no longer present Electronically Signed On 12-25-2023 23:41:33 CDT by Brian Dejesus M.D. [id number]
[2023-12-24 15:34] LABS: Hematocrit 34.3 % (37-53); Mean Corpuscular HGB Conc 32.1 g/dL (30-55); Mean Corpuscular Hemoglobin 31.2 pg (27-33); Mean Corpuscular Volume 97.2 fl (82-101); Mean Platelet Volume 9.4 fL (7.4-10.4); Platelet Count 225 10^3/cmm (157-399); Red Blood Count 3.53 10^6/uL (3.85-5.65); Red Cell Distribution Width 13.1 % (12.1-15.1); White Blood Count 10.93 10^3/uL (3.29-11.43)
[2023-12-24 15:54] LABS: Ammonia 23 umol/L (16-60)
--- NOTE | 2023-12-24 15:57 | ED_ITS ---
HPI - General Adult 2 General: Chief complaint: General Medical Stated complaint: weakness Time Seen by Provider: 12/24/23 15:52 History of Present Illness: 63-year-old man with a history of schizo phrenia and hyperlipidemia who presents to the emergency room with some confusion earlier. He says he had had some head pain earlier. He had a cough this morning but this is all resolved since. Says he feels better now and he is not sure why he is here. Review of Systems 2 Narrative: Constitutional symptoms: Negative except as documented in HPI. Skin symptoms: Negative except as documented in HPI. Eye symptoms: Negative except as documented in HPI. ENMT symptoms: Negative except as documented in HPI. Respiratory symptoms: Negative except as documented in HPI. Cardiovascular symptoms: Negative except as documented in HPI. Gastrointestinal symptoms: Negative except as documented in HPI. Genitourinary symptoms: Negative except as documented in HPI. Musculoskeletal symptoms: Negative except as documented in HPI. Neurologic symptoms: Negative except as documented in HPI. Psychiatric symptoms: Negative except as documented in HPI. Endocrine symptoms: Negative except as documented in HPI. PFSH ED 2 PFSH: Medical History Chronic steroid use Encounter for smoking cessation counseling Hepatitis C Treated in 2018 High risk medication use Hyperlipidemia, unspecified Immunization counseling Paranoid schizophrenia Paranoid schizophrenia in remission Seropositive rheumatoid arthritis of multiple sites Surgical History Total knee replacement status Family History Other Unknown family medical history Social History Smoking and tobacco/nicotine status: current every day tobacco/nicotine user cigarettes Packs smoked per day: 0.5 Years cigarettes smoked: 53 [ Other cigarette details: Started at 11] Alcohol intake: unknown Housing: Assisted Living Facility Physical Exam 2 Narrative: EXAM NARRATIVE: General: Alert, no acute distress. Skin: Warm, dry. Head: Normocephalic, atraumatic. Neck: Supple, trachea midline. Eye: Extraocular movements are intact. Ears, nose, mouth and throat: mucosa moist. Cardiovascular: Regular, Normal peripheral perfusion. Respiratory: Lungs are clear to auscultation, respirations are non-labored, breath sounds are equal, Symmetrical chest wall expansion. Gastrointestinal: Soft, Nontender, Non distended, Normal bowel sounds. Musculoskeletal: Normal ROM, no deformity. Neurological: Alert and oriented, No focal neurological deficit observed. Psychiatric: Cooperative, appropriate mood & affect. Course 2 Vital Signs: Vital signs: Vital Signs Temperature 97.5 F L 12/24/23 14:29 Pulse Rate 84 12/24/23 16:00 Respiratory Rate 16 12/24/23 16:00 Blood Pressure 101/60 12/24/23 16:00 Pulse Oximetry 98 12/24/23 16:00 Oxygen Delivery Me thod Room Air 12/24/23 16:00 MDM - General Adult Medical Decision Making Medical decision making: Differential diagnosis including but not limited to and based on the above HPI, review of systems and physical exam: In this patient with altered mental status: Stroke. Hypoglycemia. Metabolic encephalopathy. Infections such as pneumonia, urinary tract infection, Covid-19, Influenza. Electrolyte abnormalities such as hypernatremia. Renal failure / uremia. Hepatic encephalopathy. Hypoxemia. Hypercapnic respiratory failure. Psychosis. Drug or alcohol intoxication. Medication overdose. Orders placed to evaluate differential diagnosis based on the above differential, HPI and physical exam EKG: Time 1511. Rate 85. Normal sinus rhythm, No ST-T changes, no ectopy, normal IN & QRS intervals, This was reviewed and interpreted by myself the ER physician at 1515 Chest x-ray: Atelectasis/infiltrate versus more likely chronic changes in the lower lungs. No acute process. No infiltrate. No pneumothorax. No cardiomegaly. This was reviewed and interpreted by myself the ER physician. Lab Review: Laboratory results were reviewed and interpreted by myself the emergency room physician. I reviewed the patient's medical record. Reexamination: Lab Data 12/24/23 15:24 12/24/23 15:24 Radiology Impressions Chest X-Ray 12/24/23 14:44 IMPRESSION: 1. Mild infiltrates in the RIGHT lower lung zone and the mid and lower LEFT lung zones. Pneumonia not excluded but changes are more likely chronic in nature. There is superimposed interstitial chronic changes noted bilaterally. Head CT 12/24/23 14:44 IMPRESSION: No acute intracranial findings. Laboratory Results WBC 10.93 10^3/uL (3.29-11.43) 12/24/23 15:24 RBC 3.53 10^6/uL (3.85-5.65) L 12/24/23 15:24 Hgb 11.00 g/dL (11.27-16.99) L 12/24/23 15:24 Hct 34.3 % (37-53) L 12/24/23 15:24 MCV 97.2 fl (82-101) 12/24/23 15:24 MCH 31.2 pg (27-33) 12/24/23 15:24 MCHC 32.1 g/dL (30-55) 12/24/23 15:24 RDW 13.1 % (12.1-15.1) 12/24/23 15:24 Plt Count 225 10^3/cmm (157-399) 12/24/23 15:24 MPV 9.4 fL (7.4-10.4) 12/24/23 15:24 Lymph % (Auto) Not Reportable 12/24/23 15:24 [place] % (Auto) Not Reportable 12/24/23 15:24 Lymph # (Auto) Not Reportable 12/24/23 15:24 [place] # (Auto) Not Reportable 12/24/23 15:24 Total Counted 100 (0-100) 12/24/23 15:24 Atypical Lymphs % Not Reportable 12/24/23 15:24 Absolute Neutrophils 9.6 10^3/cmm (1.4-6.5) H 12/24/23 15:24 Segmented Neutrophils 69 % 12/24/23 15:24 Abs Segm Neuts (Man) 7.5 10/cmm (1.6-7.1) H 12/24/23 15:24 Band Neutrophils 19.0 % 12/24/23 15:24 Abs Band Neuts (Man) 2.1 10^3/cmm (0.0-1.2) H 12/24/23 15:24 Lymphocytes (Manual) 4 % 12/24/23 15:24 Monocytes (Manual) 7.0 % 12/24/23 15:24 Absolute Monocytes 0.8 10^3/cmm (0.1-0.6) H 12/24/23 15:24 Eosinophils (Manual) 0 % 12/24/23 15:24 Absolute Eosinophils 0.0 10^3/cmm (0.0-0.7) 12/24/23 15:24 Basophils (Manual) 0.0 % 12/24/23 15:24 Absolute Basophils 0.0 10^3/cmm (0.0-0.2) 12/24/23 15:24 Myelocytes 1.0 % 12/24/23 15:24 Platelet Estimate Normal (Normal) 12/24/23 15:24 PT 14.40 SECONDS (12.1-14.9) 12/24/23 15:24 INR 1.09 (0.8-1.2) 12/24/23 15:24 Sodium 131 mmol/L (136-145) L 12/24/23 15:24 Potassium 4.2 mmol/L (3.5-5.1) 12/24/23 15:24 Chloride 95 mmol/L (98-107) L 12/24/23 15:24 Carbon Dioxide 27 mmol/L (22-29) 12/24/23 15:24 Anion Gap 13.2 (5-19) 12/24/23 15:24 BUN 11 mg/dL (8-23) 12/24/23 15:24 Creatinine 0.6 mg/dL (0.7-1.2) L 12/24/23 15:24 GFR Calculation 135.2 mL/min (90-130) H 12/24/23 15:24 Glucose 167 mg/dL (65-115) H 12/24/23 15:24 Calculated Osmolality 275 mOsm/kg (285-295) L 12/24/23 15:24 Calcium 8.8 mg/dL (8.5-10.5) 12/24/23 15:24 Total Bilirubin 0.4 mg/dL (0.15-1.2) 12/24/23 15:24 AST 34 U/L (0-40) 12/24/23 15:24 ALT 10 U/L (0-41) 12/24/23 15:24 Alkaline Phosphatase 75 U/L (40-130) 12/24/23 15:24 Ammonia 23 umol/L (16-60) 12/24/23 15:24 Total Protein 6.6 g/dL (6.6-8.7) 12/24/23 15:24 Albumin 3.4 g/dL (3.5-5.2) L 12/24/23 15:24 Globulin 3.2 g/dL (1.3-4.6) 12/24/23 15:24 TSH 1.11 uIU/mL (0.27-4.20) 12/24/23 15:24 Urine Color Yellow (Yellow) 12/24/23 16:03 Urine Appearance Clear (CLEAR) 12/24/23 16:03 Urine pH 7 (5-7) 12/24/23 16:03 Ur Specific Irwin 1.005 (1.005-1.030) 12/24/23 16:03 Urine Protein Neg (Negative) 12/24/23 16:03 Urine Glucose (UA) Trace (Normal) H 12/24/23 16:03 Urine Ketones Negative (Negative) 12/24/23 16:03 Urine Blood Neg (Negative) 12/24/23 16:03 Urine Nitrate Negative (Negative) 12/24/23 16:03 Urine Bilirubin Neg (Negative) 12/24/23 16:03 Urine Urobilinogen Neg mg/dL (Negative) 12/24/23 16:03 Ur Leukocyte Esterase Negative (Negative) 12/24/23 16:03 All radiology interpretation(s) finalized by discharge Discharge Plan Discharge Condition: Stable Prescriptions: No Action celecoxib [Celebrex] 200 mg capsule 200 mg PO DAILY lisinopril 5 mg tablet 5 mg PO DAILY loratadine 10 mg capsule 10 mg PO DAILY olanzapine 15 mg tablet 15 mg PO QPM omeprazole 40 mg capsule,delayed release(DR/EC) 40 mg PO DAILY psyllium husk [Reguloid (psyllium husk)] 0.4 gram capsule 0.8 g PO BEDTIME sennosides-docusate sodium [Senexon-S] 8.6-50 mg tablet 1 tab-cap PO BID tramadol 50 mg tablet 50 mg PO QID acetaminophen 325 mg capsule 650 mg PO QID PRN (Reason: Pain) guaifenesin 100 mg/5 mL liquid 200 mg PO Q4H PRN (Reason: Cough) ascorbate calcium (vitamin C) 500 mg tablet 500 mg PO DAILY methotrexate sodium 2.5 mg tablet 10 mg PO .Q7days Qty: 20 2RF Hold Instructions: Resume on 06/12/22. hold until you see rheumatology Stiolto Respimat 2.5-2.5 mcg/actuation mist 2 puff inhalation DAILY Qty: 4 6RF albuterol sulfate 90 mcg/actuation HFA aerosol inhaler 1 inh inhalation Q6H PRN (Reason: shortness of breath or wheezing) Qty: 8.5 6RF cholecalciferol (vitamin D3) 50 mcg (2,000 unit) capsule 50 mcg PO DAILY Qty: 30 3RF alprazolam 0.5 mg tablet 0.5 mg PO QID trazodone 100 mg tablet 100 mg PO BEDTIME folic acid 800 mcg Tablet 800 mcg PO DAILY prednisone 5 mg tablet 7.5 mg PO DAILY Referrals: Gil Graham Jr, MD [Primary Care Provider] - Coding Level of Care Code ED Event Marketing Coordinator for Jessica Conti
[2023-12-24 16:00] VITALS: BP 101/60; PULSE 84; RESP 16; O2SAT 98
[2023-12-24 16:04] LABS: Alanine Aminotransferase 10 U/L (0-41); Albumin Level 3.4 g/dL (3.5-5.2); Alkaline Phosphatase 75 U/L (40-130); Anion Gap 13.2 (5-19); Aspartate Amino Transferase 34 U/L (0-40); Blood Urea Nitrogen 11 mg/dL (8-23); Calcium 8.8 mg/dL (8.5-10.5); Carbon Dioxide 27 mmol/L (22-29); Chloride 95 mmol/L (98-107); Creatinine Clr Calc Pharmacy 85.9464; Globulin 3.2 g/dL (1.3-4.6); Glomerular Filtration Rate 135.2 mL/min (90-130); Glucose 167 mg/dL (65-115); Osmolality Calculated 275 mOsm/kg (285-295); Potassium 4.2 mmol/L (3.5-5.1); Sodium 131 mmol/L (136-145); Thyroid Stimulating Hormone 1.11 uIU/mL (0.27-4.20); Total Bilirubin 0.4 mg/dL (0.15-1.2); Total Protein 6.6 g/dL (6.6-8.7)
[2023-12-24 16:05] LABS: INR 1.09 (0.8-1.2)
[2023-12-24 16:20] LABS: Add Urine Microscopic? NO; Charge for UA Resulting for Rev
[2023-12-24 16:24] LABS: Bilirubin Urine Neg (Negative); Blood Urine Neg (Negative); Glucose Urine UA Trace (Normal); Ketones Urine Negative (Negative); Leukocyte Esterase Urine Negative (Negative); Nitrate Urine Negative (Negative); Protein Urine Neg (Negative); Specific Gravity, Urine 1.005 (1.005-1.030); Urine Appearance Clear (CLEAR); Urine Color Yellow (Yellow); Urobilinogen Urine Neg (Negative); pH Urine 7 (5-7)
[2023-12-24 16:29] LABS: Slide Review Slide Review Perform
[2023-12-24 16:30] LABS: Total Cells Counted 100 (0-100)
[2023-12-24 16:31] LABS: Band Neutrophils Absolute 2.1 10^3/cmm (0.0-1.2)
[2023-12-24 16:32] LABS: Absolute Segmented Neutrophil 7.5 10/cmm (1.6-7.1); Eosinophils 0 %; Lymphocytes 4 %; Monocytes Absolute 0.8 10^3/cmm (0.1-0.6); Segmented Neutrophils 69 %
[2023-12-24 16:33] LABS: Absolute Neutrophil 9.6 10^3/cmm (1.4-6.5); Platelet Estimate Normal (Normal)
[2023-12-24 17:30] VITALS: BP 110/71; PULSE 80; RESP 15; O2SAT 96
[2023-12-24 18:11] VITALS: BP 107/63; PULSE 81; RESP 16; O2SAT 98
== END 2023-12-24 18:12 | disposition home or self-care (01) ==
PROVIDERS: Emergency Medicine; Emergency Provider Emergency Medicine; PCP Family Medicine
DX: G93.40 Encephalopathy, unspecified (principal); Z86.19 Personal history of other infectious and parasitic diseases; E78.5 Hyperlipidemia, unspecified; F17.210 Nicotine dependence, cigarettes, uncomplicated
CPT/HCPCS: 36415; 70450; 71045; 80053; 81003; 82140; 84443; 85007; 85025; 85610; 93005; 99285

== ENCOUNTER → 2024-02-22 11:40 | Outpatient (BNVA) | payer MEDICARE, MEDICAID, SELFPAY | PROVIDERS: PCP Family Medicine; Referring Provider Internal Medicine; Visit Provider Surgery | DX: K59.00 Constipation, unspecified (principal) | CPT/HCPCS: 99204 ==

== ENCOUNTER 2024-04-09 11:30 | Day surgery (SDC) | payer MEDICARE, MEDICAID, SELFPAY ==
[2024-04-09 11:52] VITALS: BP 127/80; PULSE 109; RESP 14; TEMP 36.6; O2SAT 97; BMI 20.5
--- NOTE | 2024-04-09 12:03 | ANES.PREANE2 ---
Pre-Anesthetic Assessment Height/Weight: Height 1.68 m Weight 57.606 kg Temp Pulse Resp BP Pulse Ox O2 Del Method 97.8 F 109 H 14 127/80 97 Room Air 04/09/24 11:52 04/09/24 11:52 04/09/24 11:52 04/09/24 11:52 04/09/24 11:52 04/09/24 11:52 Operation Date: 04/09/24 12:30 Proposed Procedures p Colonoscopy - 39456, G0105, K59.00(Not Applicable) - Landon Rodríguez DO Familial anesthetic complications: none Was Beta William taken within 24 hours: N/A (took lisinopril yesterday) Was Clonidine taken within 24 hours: N/A Last intake: Intake Last Liquid Date 04/09/24 Last Liquid Time 20:00 Last Solid Date 04/08/24 Last Solid Time 18:00 Social Tobacco (>1ppd. did not smoke today or yesterday per caregiver) and No alcohol Exam alert and oriented x 3 Airway Submandibular: within normal limits Cervical ROM: within normal limits Mallampati: Class I Dentition: false Pulmonary Chronic Obstructive Pulmonary Disease and Exertional Dyspnea CV/HEM Hypertension None reported Hepatic Hepatitis (hep C treated in 2018) GI Gastroesophageal Reflux Disease Metabolic None reported Musc/skel None reported Neuropsych Anxiety paranoid schizo. garvin of state, caregiver present today. Anesthetic Plan ASA status: 3 Anesthesia: Anesthesia Evaluation, General and MAC Risk of > 500 ml blood loss (7ml/kg in children): No Medications/Allergies Home Medications Medication Instructions Recorded Confirmed Last Taken Type acetaminophen 325 mg capsule 650 mg PO QID PRN Pain 01/13/21 04/09/24 1 Month Ago History ~03/08/24 celecoxib 200 mg capsule (Celebrex) 200 mg PO DAILY 01/13/21 04/09/24 04/08/24 History guaifenesin 100 mg/5 mL oral liquid 200 mg PO Q4H PRN Cough 01/13/21 04/09/24 04/05/24 History lisinopril 5 mg tablet 5 mg PO DAILY 01/13/21 04/09/24 04/08/24 History loratadine 10 mg capsule 10 mg PO DAILY 01/13/21 04/09/24 04/08/24 History methotrexate sodium 2.5 mg tablet 10 mg (4 x 2.5 mg) PO .Q7days #20 01/13/21 04/09/24 04/05/24 Rx tabs olanzapine 15 mg tablet (Zyprexa) 15 mg PO QPM 01/13/21 04/09/24 04/08/24 History omeprazole 40 mg capsule,delayed 40 mg PO DAILY 01/13/21 04/09/24 04/08/24 History release psyllium husk 0.4 gram capsule 0.8 g PO BEDTIME 01/13/21 04/09/24 04/08/24 History (Reguloid (psyllium husk)) sennosides 8.6 mg-docusate sodium 1 tab-cap PO BID 01/13/21 04/09/24 04/08/24 History 50 mg tablet (Senexon-S) tramadol 50 mg tablet 50 mg PO QID 01/13/21 04/09/24 04/08/24 History cholecalciferol (vitamin D3) 50 50 mcg PO DAILY #30 caps 01/17/21 04/09/24 04/08/24 Rx mcg (2,000 unit) capsule alprazolam 0.5 mg tablet 0.5 mg PO QID 05/17/22 04/09/24 04/09/24 06:00 History folic acid 800 mcg tablet 800 mcg PO DAILY 05/17/22 04/09/24 04/08/24 History prednisone 5 mg tablet 7.5 mg PO DAILY 05/17/22 04/09/24 04/08/24 History trazodone 100 mg tablet 100 mg PO BEDTIME 05/17/22 04/09/24 04/08/24 History albuterol sulfate 90 mcg/actuation 1 inh inhalation Q6H PRN shortness 11/16/22 04/09/24 04/09/24 06:00 Rx aerosol inhaler of breath or wheezing #8.5 grams tiotropium 2.5 mcg-olodaterol 2.5 2 puff inhalation DAILY #4 grams 11/16/22 04/09/24 04/09/24 06:00 Rx mcg/actuation mist for inhalation (Stiolto Respimat) polyethylene glycol 3350 17 17 g PO DAILY 30 days #510 grams 02/22/24 04/09/24 04/08/24 Rx gram/dose oral powder (Miralax) Allergies Allergy/AdvReac Type Severity Reaction Status Date / Time haloperidol [From Haldol] Allergy ADR-Muscle Verified 04/09/24 11:46 Pain Penicillins Allergy Unknown Verified 04/09/24 11:46 [facility] Anesthesia Medical History Encounter for smoking cessation counseling Chronic steroid use Immunization counseling High risk medication use Seropositive rheumatoid arthritis of multiple sites Paranoid schizophrenia in remission Paranoid schizophrenia Hepatitis C Treated in 2018 Hyperlipidemia, unspecified Surgical History Total knee replacement status Family History Other Unknown family medical history Social History Smoking and tobacco/nicotine status: current every day tobacco/nicotine user cigarettes Packs smoked per day: 0.5 Years cigarettes smoked: 53 [ Other cigarette details: Started at 9] Alcohol intake: unknown Housing: Assisted Living Facility Data Anesthesia Cardiac Studies: No Data to Display
[2024-04-09] MEDS: sodium chloride 0.9% 1,000 ML 30 ML IV (12:11)
--- NOTE | 2024-04-09 12:36 | P.HP_ITS ---
Providers/Chief Complaint Primary Care Provider: Gil Graham Jr, MD Chief Complaint: K59.00 History of Present Illness Robert Calle is a 63 year old male Review of Systems 2 General: Reports: 10 or more systems reviewed and unremarkable except in HPI and below Medications/Allergies Home Medications Medication Instructions Recorded Confirmed Last Taken Type acetaminophen 325 mg capsule 650 mg PO QID PRN Pain 01/13/21 04/09/24 1 Month Ago History ~03/08/24 celecoxib 200 mg capsule (Celebrex) 200 mg PO DAILY 01/13/21 04/09/24 04/08/24 History guaifenesin 100 mg/5 mL oral liquid 200 mg PO Q4H PRN Cough 01/13/21 04/09/24 04/05/24 History lisinopril 5 mg tablet 5 mg PO DAILY 01/13/21 04/09/24 04/08/24 History loratadine 10 mg capsule 10 mg PO DAILY 01/13/21 04/09/24 04/08/24 History methotrexate sodium 2.5 mg tablet 10 mg (4 x 2.5 mg) PO .Q7days #20 01/13/21 04/09/24 04/05/24 Rx tabs olanzapine 15 mg tablet (Zyprexa) 15 mg PO QPM 01/13/21 04/09/24 04/08/24 History omeprazole 40 mg capsule,delayed 40 mg PO DAILY 01/13/21 04/09/24 04/08/24 His tory release psyllium husk 0.4 gram capsule 0.8 g PO BEDTIME 01/13/21 04/09/24 04/08/24 History (Reguloid (psyllium husk)) sennosides 8.6 mg-docusate sodium 1 tab-cap PO BID 01/13/21 04/09/24 04/08/24 History 50 mg tablet (Senexon-S) tramadol 50 mg tablet 50 mg PO QID 01/13/21 04/09/24 04/08/24 History cholecalciferol (vitamin D3) 50 50 mcg PO DAILY #30 caps 01/17/21 04/09/24 04/08/24 Rx mcg (2,000 unit) capsule alprazolam 0.5 mg tablet 0.5 mg PO QID 05/17/22 04/09/24 04/09/24 06:00 History folic acid 800 mcg tablet 800 mcg PO DAILY 05/17/22 04/09/24 04/08/24 History prednisone 5 mg tablet 7.5 mg PO DAILY 05/17/22 04/09/24 04/08/24 History trazodone 100 mg tablet 100 mg PO BEDTIME 05/17/22 04/09/24 04/08/24 History albuterol sulfate 90 mcg/actuation 1 inh inhalation Q6H PRN shortness 11/16/22 04/09/24 04/09/24 06:00 Rx aerosol inhaler of breath or wheezing #8.5 grams tiotropium 2.5 mcg-olodaterol 2.5 2 puff inhalation DAILY #4 grams 11/16/22 04/09/24 04/09/24 06:00 Rx mcg/actuation mist for inhalation (Stiolto Respimat) polyethylene glycol 3350 17 17 g PO DAILY 30 days #510 grams 02/22/24 04/09/24 04/08/24 Rx gram/dose oral powder (Miralax) Allergies Allergy/AdvReac Type Severity Reaction Status Date / Time haloperidol [From Haldol] Allergy ADR-Muscle Verified 04/09/24 11:46 Pain Penicillins Allergy Unknown Verified 04/09/24 11:46 PFSH Acute PFSH: Medical History Encounter for smoking cessation counseling Chronic steroid use Immunization counseling High risk medication use Seropositive rheumatoid arthritis of multiple sites Paranoid schizophrenia in remission Paranoid schizophrenia Hepatitis C Treated in 2018 Hyperlipidemia, unspecified Surgical History Total knee replacement status Family History Other Unknown family medical history Social History Smoking and tobacco/nicotine status: current every day tobacco/nicotine user cigarettes Packs smoked per day: 0.5 Years cigarettes smoked: 53 [ Other cigarette details: Started at 9] Alcohol intake: unknown Housing: Assisted Living Facility Vitals/I&O/Wt Last Vital Signs Temp 97.8 F 04/09/24 11:52 Pulse 109 H 04/09/24 11:52 Resp 14 04/09/24 11:52 BP 127/80 04/09/24 11:52 Pulse Ox 97 04/09/24 11:52 O2 Del Method Room Air 04/09/24 11:52 Weight last 48 hrs Weight 127 lb A&P Assessment and plan (1) Colon cancer screening: Plan Colonoscopy Attestations Medical Necessity Statement*: Home Coding Level of Care Code Acute Code for Chg Fwd Diagnoses Colon cancer screening Z12.11
[2024-04-09 13:22] VITALS: BP 104/65; PULSE 85; RESP 18; TEMP 36.1; O2SAT 96
[2024-04-09 13:33] VITALS: BP 115/67; PULSE 79; RESP 18; O2SAT 94
--- NOTE | 2024-04-09 13:45 | ANE.PACU2 ---
Inpatient post-anesthesia follow up: Airway intact: Yes Vital signs: Temperature 97 F Pulse Rate 79 Respiratory Rate 18 Blood Pressure 115/67 Pulse Oximetry 94 Oxygen Delivery Me thod Room Air Oxygen Flow Rate Fraction of Inspir ed Oxygen Hydration adequate: Yes Nausea and vomiting: No Pain level: 1 Mental status: Baseline
== END 2024-04-09 13:46 | disposition home or self-care (01) ==
PROVIDERS: PCP Family Medicine; Visit Provider Surgery
PROC: 0DJD8ZZ Inspection of Lower Intestinal Tract, Via Natural or Artificial Opening Endoscopic (ICD-10-PCS; CPT 45378; principal; 2024-04-09 12:30)
DX: K59.00 Constipation, unspecified (principal); D12.3 Benign neoplasm of transverse colon; D12.5 Benign neoplasm of sigmoid colon; D12.8 Benign neoplasm of rectum; E78.5 Hyperlipidemia, unspecified; Z86.19 Personal history of other infectious and parasitic diseases; Z79.52 Long term (current) use of systemic steroids; F17.210 Nicotine dependence, cigarettes, uncomplicated; I10 Essential (primary) hypertension; F41.9 Anxiety disorder, unspecified
CPT/HCPCS: 45385; 88305; J2704; J7030

== ENCOUNTER → 2024-04-24 10:55 | Outpatient (BNVA) | payer MEDICARE, MEDICAID, SELFPAY | PROVIDERS: PCP Family Medicine; Visit Provider Surgery | DX: Z09 Encounter for follow-up examination after completed treatment for conditions other than malignant neoplasm (principal); K59.00 Constipation, unspecified; D37.4 Neoplasm of uncertain behavior of colon | CPT/HCPCS: 99214 ==

== ENCOUNTER 2024-09-25 22:02 | Emergency (ER) | payer MEDICARE, MEDICAID, SELFPAY ==
[2024-09-25 22:03] VITALS: BMI 25.0
[2024-09-25 22:10] VITALS: BP 108/68; PULSE 88; RESP 20; TEMP 36.8; O2SAT 94
--- NOTE | 2024-09-25 22:11 | XRR_ITS ---
PROCEDURE INFORMATION: Exam: XR Chest Exam date and time: 09/25/2024 10:13 PM Age: 64 years old Clinical indication: Other: Choked on an apple TECHNIQUE: Imaging protocol: Radiologic exam of the chest. Views: 1 view. COMPARISON: CR XR chest 1V portable [id number] 12/24/2023 2:55 PM FINDINGS: Lungs: Chronic interstitial lung changes present. Suspected patchy acute airspace disease in the bilateral mid and right upper lung field. Pleural spaces: Unremarkable. No pleural effusion. No pneumothorax. Heart/Mediastinum: Unremarkable. No cardiomegaly. Bones/joints: Unremarkable. XR/XR chest 1V portable [id number] IMPRESSION: 1. Suspected acute patchy airspace disease in the bilateral mid and right upper lung field. 2. Chronic interstitial lung changes
--- NOTE | 2024-09-25 22:20 | W.ED.GENADLT ---
HPI - General Adult General: Chief complaint: Airway/Esophagus Foreign Body Stated complaint: AIRWAY TRAUMA Time Seen by Provider: 09/25/24 22:19 History of Present Illness: Patient brought in by self, EMS with complaint of throat pain after choking on apple. He said he took a bite of an apple swallowed it and got hung in his throat and he was choking and a med check the Heimlich maneuver and he spit it up along with a little bit of blood. Patient says he is doing much better now and has no complaints currently. Related Data Home Medications ?Medication ?Instructions ?Recorded ?Confirmed acetaminophen 325 mg capsule 650 mg PO QID PRN Pain 01/13/21 04/24/24 celecoxib 200 mg capsule (Celebrex) 200 mg PO DAILY 01/13/21 04/24/24 Held on 04/09/24. Instructions: Resume on 04/11/24. guaifenesin 100 mg/5 mL oral liquid 200 mg PO Q4H PRN Cough 01/13/21 04/24/24 lisinopril 5 mg tablet 5 mg PO DAILY 01/13/21 04/24/24 loratadine 10 mg capsule 10 mg PO DAILY 01/13/21 04/24/24 olanzapine 15 mg tablet (Zyprexa) 15 mg PO QPM 01/13/21 04/24/24 omeprazole 40 mg capsule,delayed 40 mg PO DAILY 01/13/21 04/24/24 release psyllium husk 0.4 gram capsule 0.8 g PO BEDTIME 01/13/21 04/24/24 (Reguloid (psyllium husk)) sennosides 8.6 mg-docusate sodium 1 tab-cap PO BID 01/13/21 04/24/24 50 mg tablet (Senexon-S) tramadol 50 mg tablet 50 mg PO QID 01/13/21 04/24/24 alprazolam 0.5 mg tablet 0.5 mg PO QID 05/17/22 04/24/24 folic acid 800 mcg tablet 800 mcg PO DAILY 05/17/22 04/24/24 prednisone 5 mg tablet 7.5 mg PO DAILY 05/17/22 04/24/24 trazodone 100 mg tablet 100 mg PO BEDTIME 05/17/22 04/24/24 Previous Rx's ?Medication ?Instructions ?Recorded methotrexate sodium 2.5 mg tablet 10 mg (4 x 2.5 mg) PO .Q7days #20 01/13/21 tabs cholecalciferol (vitamin D3) 50 50 mcg PO DAILY #30 caps 01/17/21 mcg (2,000 unit) capsule albuterol sulfate 90 mcg/actuation 1 inh inhalation Q6H PRN shortness 11/16/22 aerosol inhaler of breath or wheezing #8.5 grams tiotropium 2.5 mcg-olodaterol 2.5 2 puff inhalation DAILY #4 grams 11/16/22 mcg/actuation mist for inhalation (Stiolto Respimat) polyethylene glycol 3350 17 17 g PO DAILY 30 days #510 grams 02/22/24 gram/dose oral powder (Miralax) Allergies Allergy/AdvReac Type Severity Reaction Status Date / Time haloperidol (From Haldol) Allergy ADR-Muscle Verified 04/24/24 11:11 Pain Penicillins Allergy Unknown Verified 04/24/24 11:11 Review of Systems General: Reports: 10 or more systems reviewed and unremarkable except in HPI and below PFSH ED PFSH: Medical History Tubulovillous adenoma of colon Encounter for smoking cessation counseling Chronic steroid use Immunization counseling High risk medication use Seropositive rheumatoid arthritis of multiple sites Paranoid schizophrenia in remission Paranoid schizophrenia Hepatitis C Treated in 2018 Hyperlipidemia, unspecified Surgical History Total knee replacement status Family History Other Unknown family medical history Social History Smoking and tobacco/nicotine status: current every day tobacco/nicotine user (cigarettes) cigarettes Packs smoked per day: 0.5 Years cigarettes smoked: 53 [ Other cigarette details: Started at 9] Alcohol intake: unknown Housing: Assisted Living Facility Physical Exam Const: COMMON NORMALS: no acute distress, average body habitus, patient oriented x3, no limitations, healthy appearing, alert and well nourished HENMT: COMMON NORMALS: normocephalic, atraumatic, hearing grossly normal bilaterally, external ears normal, Normal external nose present, moist oral mucous membranes and oropharynx normal HEAD & SCALP: normocephalic and atraumatic NOSE: Normal external nose present EXTERNAL EAR: Yes external ears normal Neck/C-Spine: COMMON NORMALS: full ROM, no lymphadenopathy, supple, no meningeal signs and no JVD Chest: COMMONS NORMALS: normal inspection of the chest and normal palpation of entire chest wall Resp: COMMON NORMALS: normal respiratory effort, No retractions, No use of accessory muscles and clear to auscultation bilaterally AUSCULTATION: clear to auscultation bilaterally Cardio: COMMON NORMALS: no JVD, regular rate, regular rhythm, S1 normal heart sound present, S2 normal heart sound present, No gallops present (Cardio), No clicks present (Cardio), No murmurs present (Cardio) and No rub (Cardio) RATE: regular rate RHYTHM: regular rhythm HEART SOUNDS: S1 normal heart sound present and S2 normal heart sound present GI: COMMON NORMALS: Normal to inspection, nondistended, normoactive bowel sounds present, Soft to palpation, non-tender, No hepatosplenomegaly present and no masses PALPATION: Yes Soft to palpation and Yes No hepatosplenomegaly present Neuro: COMMON NORMALS: patient oriented x3 SENSORIUM/ORIENTATION: Yes alert MENINGEAL SIGNS: Yes no meningeal signs Course Vital Signs: Vital signs: Vital Signs Temperature 98.3 F 09/25/24 22:10 Pulse Rate 88 09/25/24 22:10 Respiratory Rate 20 H 09/25/24 22:10 Blood Pressure 108/68 09/25/24 22:10 Pulse Oximetry 94 09/25/24 22:10 Oxygen Delivery Me thod Room Air 09/25/24 22:10 MDM - General Adult Medical Decision Making Chest x-ray read off by myself preliminary is negative, the patient is feeling much better. Patient be discharged back to his facility. Medical Records I reviewed the patient's medical records. Lab Data I reviewed the patient's lab results. XR interpretation done by ED provider, pending radiology final review Discharge Plan Discharge Patient Disposition: Home Clinical Impression: Choking due to food in larynx Qualifiers: Encounter type: initial encounter Qualified Code(s): T17.320A - Food in larynx causing asphyxiation, initial encounter Condition: Stable Prescriptions: No Action celecoxib [Celebrex] 200 mg capsule 200 mg PO DAILY lisinopril 5 mg tablet 5 mg PO DAILY loratadine 10 mg capsule 10 mg PO DAILY olanzapine [Zyprexa] 15 mg tablet 15 mg PO QPM omeprazole 40 mg capsule,delayed release(DR/EC) 40 mg PO DAILY psyllium husk [Reguloid (psyllium husk)] 0.4 gram capsule 0.8 g PO BEDTIME sennosides-docusate sodium [Senexon-S] 8.6-50 mg tablet 1 tab-cap PO BID tramadol 50 mg tablet 50 mg PO QID acetaminophen 325 mg capsule 650 mg PO QID PRN (Reason: Pain) guaifenesin 100 mg/5 mL liquid 200 mg PO Q4H PRN (Reason: Cough) methotrexate sodium 2.5 mg tablet 10 mg PO .Q7days Qty: 20 2RF polyethylene glycol 3350 [Miralax] 17 gram/dose powder 17 g PO DAILY 30 Days Qty: 510 11RF Stiolto Respimat 2.5-2.5 mcg/actuation mist 2 puff inhalation DAILY Qty: 4 6RF albuterol sulfate 90 mcg/actuation HFA aerosol inhaler 1 inh inhalation Q6H PRN (Reason: shortness of breath or wheezing) Qty: 8.5 6RF cholecalciferol (vitamin D3) 50 mcg (2,000 unit) capsule 50 mcg PO DAILY Qty: 30 3RF alprazolam 0.5 mg tablet 0.5 mg PO QID trazodone 100 mg tablet 100 mg PO BEDTIME folic acid 800 mcg Tablet 800 mcg PO DAILY prednisone 5 mg tablet 7.5 mg PO DAILY Discharge Orders: Discharge ED (Routine); Ordered 09/25/24 Ordered By: Germán Rinaldi Referrals: Gil Graham Jr, MD [Primary Care Provider] - 1 week Patient Instructions: Choking, Foreign Body in the Pharynx (ED) Activity Restrictions/Additional Instructions: Activity restrictions/additional instructions: Thank you for choosing [facility] for your healthcare needs today. Please realize that you were seen in the emergency department and that we are providing you with an emergency medical screening exam and this may not be a complete and all exclusive of all testing and/or medical workup we may need to determine your element or severity of your illness. It is very important that you follow-up as instructed with your primary care provider or specialist for the additional evaluation and to discuss your medical treatment plan. You may return to the emergency department should you have concerns or if your condition changes or worsens in any way. Print Language: South Sudanese Coding Level of Care Code ED Tank Car Inspector for Jessica Conti
[2024-09-25 23:38] VITALS: BP 102/63; PULSE 84; O2SAT 89
== END 2024-09-25 23:40 | disposition home or self-care (01) ==
PROVIDERS: Emergency Provider Emergency Medicine; PCP Family Medicine
DX: T17.320A Food in larynx causing asphyxiation, initial encounter (principal); W44.F3XA Food entering into or through a natural orifice, initial encounter; F17.210 Nicotine dependence, cigarettes, uncomplicated; E78.5 Hyperlipidemia, unspecified
CPT/HCPCS: 71045; 99283

== ENCOUNTER 2025-06-17 13:00 | Emergency (ER) | payer MEDICARE, MEDICAID, SELFPAY ==
[2025-06-17] VITALS (9 sets, daily range): BP systolic 111–130; BP diastolic 66–73; PULSE 78; RESP 18; TEMP 36.5; O2SAT 95–96
--- NOTE | 2025-06-17 13:09 | ECG_ITS ---
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 Measurements Intervals Frostproof Rate: 66 P: 71 NV: 157 QRS: 84 QRSD: 136 T: 51 QT: 397 QTc: 418 Interpretive Statements SINUS RHYTHM RIGHT BUNDLE BRANCH BLOCK [120+ ms QRS DURATION, UPRIGHT V1, 40+ ms S IN I/aVL/V4/V5/V6] Compared to ECG 12/24/2023 15:11:18 No significant changes Electronically Signed On 06-17-2025 21:36:36 PERSONAL PROPERTY APPRAISER by Brian Dejesus M.D. [email or web address]
--- NOTE | 2025-06-17 13:10 | XR_ITS ---
WS: [id number] Portable AP supine chest, 06/17/2025 Clinical Data: Weakness Comparison: Portable chest, 09/25/2024 Findings: No nodules, masses or effusions are seen. The heart is normal. The pulmonary vascularity is not increased. No pneumonia or pneumothorax is seen. Chronic interstitial lung markings are present. The aortic arch and descending thoracic aorta show mild tortuosity. The diaphragms are flattened. XR/XR chest 1V portable [id number] Impression: 1. Chronic interstitial lung disease. 2. Atherosclerosis.
--- NOTE | 2025-06-17 13:17 | W.ED.FALL ---
HPI - Fall General: Chief Complaint: Fall Stated Complaint: Fall, Dizziness Time Seen by Provider: 06/17/25 13:03 History of Present Illness: 64-year-old man with a history of chronic schizophrenia, hyperlipidemia, hepatitis C, chronic lung disease, peripheral arterial disease, and rheumatoid arthritis who presents the emergency room after having had a near syncopal episode. Says he was feeling fine. He had sat down to eat. He stood up suddenly and became lightheaded and went down onto the ground slowly. He says he remembers the whole thing but was unable to speak momentarily. He did not hit his head. He is not anticoagulated. No injuries. He has no chest pain. No shortness of breath. No abdominal pain. No nausea or vomiting. No lower extremity swelling. Vitals are normal on presentation. Related Data Home Medications ?Medication ?Instructions ?Recorded ?Confirmed acetaminophen 325 mg capsule 650 mg PO QID PRN Pain 01/13/21 04/24/24 celecoxib 200 mg capsule (Celebrex) 200 mg PO DAILY 01/13/21 04/24/24 Held on 04/09/24. Instructions: Resume on 04/11/24. guaifenesin 100 mg/5 mL oral liquid 200 mg PO Q4H PRN Cough 01/13/21 04/24/24 lisinopril 5 mg tablet 5 mg PO DAILY 01/13/21 04/24/24 loratadine 10 mg capsule 10 mg PO DAILY 01/13/21 04/24/24 olanzapine 15 mg tablet (Zyprexa) 15 mg PO QPM 01/13/21 04/24/24 omeprazole 40 mg capsule,delayed 40 mg PO DAILY 01/13/21 04/24/24 release psyllium husk 0.4 gram capsule 0.8 g PO BEDTIME 01/13/21 04/24/24 (Reguloid (psyllium husk)) sennosides 8.6 mg-docusate sodium 1 tab-cap PO BID 01/13/21 04/24/24 50 mg tablet (Senexon-S) tramadol 50 mg tablet 50 mg PO QID 01/13/21 04/24/24 alprazolam 0.5 mg tablet 0.5 mg PO QID 05/17/22 04/24/24 folic acid 800 mcg tablet 800 mcg PO DAILY 05/17/22 04/24/24 prednisone 5 mg tablet 7.5 mg PO DAILY 05/17/22 04/24/24 trazodone 100 mg tablet 100 mg PO BEDTIME 05/17/22 04/24/24 Previous Rx's ?Medication ?Instructions ?Recorded methotrexate sodium 2.5 mg tablet 10 mg (4 x 2.5 mg) PO .Q7days #20 01/13/21 tabs cholecalciferol (vitamin D3) 50 50 mcg PO DAILY #30 caps 01/17/21 mcg (2,000 unit) capsule albuterol sulfate 90 mcg/actuation 1 inh inhalation Q6H PRN shortness 11/16/22 aerosol inhaler of breath or wheezing #8.5 grams tiotropium 2.5 mcg-olodaterol 2.5 2 puff inhalation DAILY #4 grams 11/16/22 mcg/actuation mist for inhalation (Stiolto Respimat) polyethylene glycol 3350 17 17 g PO DAILY 30 days #510 grams 02/22/24 gram/dose oral powder (Miralax) Allergies Allergy/AdvReac Type Severity Reaction Status Date / Time haloperidol (From Haldol) Allergy ADR-Muscle Verified 04/24/24 11:11 Pain Penicillins Allergy Unknown Verified 04/24/24 11:11 Review of Systems Narrative: Constitutional symptoms: Negative except as documented in HPI. Skin symptoms: Negative except as documented in HPI. Eye symptoms: Negative except as documented in HPI. ENMT symptoms: Negative except as documented in HPI. Respiratory symptoms: Negative except as documented in HPI. Cardiovascular symptoms: Negative except as documented in HPI. Gastrointestinal symptoms: Negative except as documented in HPI. Genitourinary symptoms: Negative except as documented in HPI. Musculoskeletal symptoms: Negative except as documented in HPI. Neurologic symptoms: Negative except as documented in HPI. Psychiatric symptoms: Negative except as documented in HPI. Endocrine symptoms: Negative except as documented in HPI. PFSH ED PFSH: Medical History (Updated 06/17/25 @ 13:41 by Cecille Romo MD) Tubulovillous adenoma of colon Encounter for smoking cessation counseling Chronic steroid use Immunization counseling High risk medication use Seropositive rheumatoid arthritis of multiple sites Paranoid schizophrenia in remission Paranoid schizophrenia Hepatitis C Treated in 2018 Hyperlipidemia, unspecified Surgical History Total knee replacement status Family History Other Unknown family medical history Social History Smoking and tobacco/nicotine status: current every day tobacco/nicotine user (cigarettes) cigarettes Packs smoked per day: 0.5 Years cigarettes smoked: 53 [ Other cigarette details: Started at 9] Alcohol intake: unknown Housing: Assisted Living Facility Physical Exam Narrative: EXAM NARRATIVE: General: Alert, no acute distress. Skin: Warm, dry. Head: Normocephalic, atraumatic. Neck: Supple, trachea midline. Eye: Extraocular movements are intact. Ears, nose, mouth and throat: mucosa moist. Cardiovascular: Regular, Normal peripheral perfusion. Respiratory: Lungs are clear to auscultation, respirations are non-labored, breath sounds are equal, Symmetrical chest wall expansion. Gastrointestinal: Soft, Nontender, Non distended Musculoskeletal: Normal ROM, no deformity. Neurological: Alert and oriented, No focal neurological deficit observed. Psychiatric: Cooperative, appropriate mood & affect. Course Vital Signs: Vital signs: Vital Signs Temperature 97.7 F 06/17/25 13:08 Pulse Rate 78 06/17/25 13:58 Respiratory Rate 18 06/17/25 13:08 Blood Pressure 111/67 06/17/25 13:58 Pulse Oximetry 96 06/17/25 13:58 Oxygen Delivery Me thod Room Air 06/17/25 13:08 MDM - Fall Medical Decision Making Medical decision making Patient's reason for coming to the emergency room: Near syncope Social determinants: Disabled, assisted-living resident. Patient has a guardian. I reviewed the patient's medical record. 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 Alternate historians: None Differential diagnosis including but not limited to and based on the above HPI, review of systems and physical exam in this patient with syncope: Vasovagal, orthostatics hypotension, cardiac dysrhythmia, myocardial infarction, infection and hypotension, Orders placed to evaluate differential diagnosis based on the above differential, HPI and physical exam EKG: Time 1320. Rate 66. Normal sinus rhythm, No ST-T changes, no ectopy, right bundle branch block, This was reviewed and interpreted by myself the ER physician at 1325 Chest x-ray: No acute process. No infiltrate. No pneumothorax. This was reviewed and interpreted by myself the emergency room physician. I also reviewed the radiology report. Lab Review: Laboratory results were reviewed and interpreted by myself the emergency room physician. No leukocytosis. No anemia. No renal failure. Baseline troponin is negative. Assessment of risk: Level of risk: Moderate risk patient. Special needs. Disabled. Hospitalization considerations: No indication for admission today. Reexamination: Patient remained stable. No increased work of breathing. No altered mental status. No focal motor deficits. Assessment and plan: Near syncope - Discharged home - Discussed plan with patient. Answered any questions. - Evaluation and treatment of this problem were appropriate in the emergency setting. Lab Data 06/17/25 12:45 06/17/25 12:45 Radiology Impressions Chest X-Ray 06/17/25 13:10 Impression: 1. Chronic interstitial lung disease. 2. Atherosclerosis. Laboratory Results WBC 8.60 10^3/uL (3.29-11.43) 06/17/25 12:45 RBC 4.19 10^6/uL (3.85-5.65) 06/17/25 12:45 Hgb 12.60 g/dL (11.27-16.99) 06/17/25 12:45 Hct 39.7 % (37-53) 06/17/25 12:45 MCV 94.7 fl (82-101) 06/17/25 12:45 MCH 30.1 pg (27-33) 06/17/25 12:45 MCHC 31.7 g/dL (30-55) 06/17/25 12:45 RDW 12.8 % (12.1-15.1) 06/17/25 12:45 Plt Count 416 10^3/cmm (157-399) H 06/17/25 12:45 MPV 9.6 fL (7.4-10.4) 06/17/25 12:45 Neut % (Auto) 76.3 % 06/17/25 12:45 Lymph % (Auto) 14.5 % 06/17/25 12:45 [place] % (Auto) 7.8 % 06/17/25 12:45 Eos % (Auto) 0.1 % 06/17/25 12:45 Baso % (Auto) 0.6 % 06/17/25 12:45 Neut # (Auto) 6.56 10^3/uL (1.8-7.7) 06/17/25 12:45 Lymph # (Auto) 1.3 10^3/uL (0.8-4.8) 06/17/25 12:45 [place] # (Auto) 0.7 10^3/uL (0.2-0.9) 06/17/25 12:45 Eos # (Auto) 0.0 10^3/uL (0.0-0.8) 06/17/25 12:45 Baso # (Auto) 0.1 10^3/uL (0.0-0.1) 06/17/25 12:45 Nucleated RBC % (auto) 0 % 06/17/25 12:45 Nucleated RBCs # 0.0 /100WBC 06/17/25 12:45 Sodium 136 mmol/L (136-145) 06/17/25 12:45 Potassium 4.2 mmol/L (3.5-5.1) 06/17/25 12:45 Chloride 100 mmol/L (98-107) 06/17/25 12:45 Carbon Dioxide 24 mmol/L (22-29) 06/17/25 12:45 Anion Gap 16.2 (5-19) 06/17/25 12:45 BUN 9 mg/dL (8-23) 06/17/25 12:45 Creatinine 0.6 mg/dL (0.7-1.2) L 06/17/25 12:45 GFR Calculation 134.8 mL/min (90-130) H 06/17/25 12:45 Glucose 139 mg/dL (65-115) H 06/17/25 12:45 Calculated Osmolality 283 mOsm/kg (285-295) L 06/17/25 12:45 Lactic Acid 1.4 mmol/L (0.5-2.2) 06/17/25 12:45 Calcium 9.5 mg/dL (8.5-10.5) 06/17/25 12:45 Total Bilirubin 0.5 mg/dL (0.15-1.2) 06/17/25 12:45 AST 13 U/L (0-40) 06/17/25 12:45 ALT 6 U/L (0-41) 06/17/25 12:45 Alkaline Phosphatase 76 U/L (40-130) 06/17/25 12:45 Troponin T Baseline 12 ng/L (0-15) 06/17/25 12:45 Total Protein 6.7 g/dL (6.6-8.7) 06/17/25 12:45 Albumin 4.0 g/dL (3.5-5.2) 06/17/25 12:45 Globulin 2.7 g/dL (1.3-4.6) 06/17/25 12:45 All radiology interpretation(s) finalized by discharge Discharge Plan Discharge Patient Disposition: Home Clinical Impression: Near syncope Condition: Stable Prescriptions: No Action celecoxib [Celebrex] 200 mg capsule 200 mg PO DAILY lisinopril 5 mg tablet 5 mg PO DAILY loratadine 10 mg capsule 10 mg PO DAILY olanzapine [Zyprexa] 15 mg tablet 15 mg PO QPM omeprazole 40 mg capsule,delayed release(DR/EC) 40 mg PO DAILY psyllium husk [Reguloid (psyllium husk)] 0.4 gram capsule 0.8 g PO BEDTIME sennosides-docusate sodium [Senexon-S] 8.6-50 mg tablet 1 tab-cap PO BID tramadol 50 mg tablet 50 mg PO QID acetaminophen 325 mg capsule 650 mg PO QID PRN (Reason: Pain) guaifenesin 100 mg/5 mL liquid 200 mg PO Q4H PRN (Reason: Cough) methotrexate sodium 2.5 mg tablet 10 mg PO .Q7days Qty: 20 2RF polyethylene glycol 3350 [Miralax] 17 gram/dose powder 17 g PO DAILY 30 Days Qty: 510 11RF Stiolto Respimat 2.5-2.5 mcg/actuation mist 2 puff inhalation DAILY Qty: 4 6RF albuterol sulfate 90 mcg/actuation HFA aerosol inhaler 1 inh inhalation Q6H PRN (Reason: shortness of breath or wheezing) Qty: 8.5 6RF cholecalciferol (vitamin D3) 50 mcg (2,000 unit) capsule 50 mcg PO DAILY Qty: 30 3RF alprazolam 0.5 mg tablet 0.5 mg PO QID trazodone 100 mg tablet 100 mg PO BEDTIME folic acid 800 mcg Tablet 800 mcg PO DAILY prednisone 5 mg tablet 7.5 mg PO DAILY Discharge Orders: Discharge ED (Routine); Ordered 06/17/25 Ordered By: Cecille Romo Referrals: Gil Graham Jr, MD [Primary Care Provider, Family Practice] Discharge Diet: Usual diet Discharge Activity: Increase activity as tolerated Patient Instructions: Opioid Safety, Pain Management, Patient Portal & Danyel Instructions Activity Restrictions/Additional Instructions: Push fluids for the next couple of days. Be careful when you stand up from sitting and wait before you take off to make sure you do not get lightheaded Thank you for choosing [facility] for your healthcare needs today. You have been screened and evaluated and felt safe for discharge. Health conditions do change or evolve sometimes and as such it is important that you follow up with your Primary Doctor to be re checked, 3-5 days is a general good time frame for follow up. You are always welcome to return to the ED for re assessment if your symptoms are worsening or you have new concerns. (Please note that included in your discharge packet is information concerning opioid safety and pain management. This information is given to all patients who are discharged from the ER regardless of their discharge diagnosis or the medicines they usually take or are prescribed.) Print Language: Kazakh Coding Level of Care Code ED Oil Burner Servicer And Installer for Jessica Conti
[2025-06-17 13:20] LABS: Hematocrit 39.7 % (37-53); Hemoglobin 12.60 g/dL (11.27-16.99); Mean Corpuscular HGB Conc 31.7 g/dL (30-55); Mean Corpuscular Hemoglobin 30.1 pg (27-33); Mean Corpuscular Volume 94.7 fl (82-101); Nucleated Red Blood Cells % 0 %; Platelet Count 416 10^3/cmm (157-399); Red Blood Count 4.19 10^6/uL (3.85-5.65); White Blood Count 8.60 10^3/uL (3.29-11.43)
[2025-06-17 13:33] LABS: Lactic Sepsis W/Reflex 1.4 mmol/L (0.5-2.2)
[2025-06-17 13:35] LABS: Troponin(5th) Baseline 12 ng/L (0-15)
[2025-06-17 13:37] LABS: Alanine Aminotransferase 6 U/L (0-41); Albumin Level 4.0 g/dL (3.5-5.2); Alkaline Phosphatase 76 U/L (40-130); Aspartate Amino Transferase 13 U/L (0-40); Blood Urea Nitrogen 9 mg/dL (8-23); Calcium 9.5 mg/dL (8.5-10.5); Carbon Dioxide 24 mmol/L (22-29); Chloride 100 mmol/L (98-107); Globulin 2.7 g/dL (1.3-4.6); Glucose 139 mg/dL (65-115); Osmolality Calculated 283 mOsm/kg (285-295); Sodium 136 mmol/L (136-145); Total Protein 6.7 g/dL (6.6-8.7)
[2025-06-17 13:39] LABS: Anion Gap 16.2 (5-19); Potassium 4.2 mmol/L (3.5-5.1)
--- NOTE | 2025-06-17 14:20 | PC.PHAR ---
Patient is from [facility]
== END 2025-06-17 16:05 | disposition home or self-care (01) ==
PROVIDERS: Emergency Provider Emergency Medicine; PCP Family Medicine
DX: R55 Syncope and collapse (principal); F17.210 Nicotine dependence, cigarettes, uncomplicated; E78.5 Hyperlipidemia, unspecified
CPT/HCPCS: 71045; 80053; 83605; 84484; 85025; 93005; 99285